=== PATIENT | male | born 1990 | race Caucasian/White ===

== ENCOUNTER 2017-05-13 19:53 | Inpatient (IN) | payer SELFPAY ==
[2017-05-13] MEDS ORDERED: PIPERACILLIN/TAZOBACTAM 4.5 GM VIAL IV ONE (20:59)
[2017-05-13] MEDS ORDERED: NORMAL SALINE 1000 ML 1,000 ML IV ONE (20:59)
--- NOTE | 2017-05-13 21:38 | ER Document Report ---
ED General - General Chief Complaint: Wound Infection Stated Complaint: FINGER INFECTION Time Seen by Provider: 05/13/17 20:59 Mode of Arrival: Ambulatory Information source: Patient TRAVEL OUTSIDE OF THE [place] IN LAST 30 DAYS: No - HPI Notes: 26-year-old gentleman who is right-handed presented today for evaluation of left hand infection. According to patient he initially had a small blister localized to the flexor surface of his left ring finger approximately 3 days ago. Patient attempted to squeeze the blister that progressed to worsening infection. Now patient has systemic signs of illness including tachycardia, fevers and chills, worsening hand pain and swelling. Patient denies any history of IV drug use. - Related Data Allergies/Adverse Reactions: No Known Allergies Allergy (Unverified 11/02/13 12:32) Past Medical History - Social History Smoking Status: Current Every Day Smoker Frequency of alcohol use: Occasional Family History: Reviewed & Not Pertinent Patient has suicidal ideation: No Patient has homicidal ideation: No Renal/ Medical History: Denies: Hx Peritoneal Dialysis - Immunizations Hx Diphtheria, Pertussis, Tetanus Vaccination: Yes Review of Systems - Review of Systems Notes: REVIEW OF SYSTEMS: CONSTITUTIONAL: +fevers, +chills EENT: -eye pain, -difficulty swallowing, -nasal congestion CARDIOVASCULAR: -chest pain, -syncope. RESPIRATORY: -cough, -SOB GASTROINTESTINAL: -abdominal pain, -nausea, -vomiting, -diarrhea GENITOURINARY: -dysuria, -hematuria MUSCULOSKELETAL: -back pain, -neck pain SKIN: + Worsening hand swelling, redness, pain HEMATOLOGIC: -easy bruising or bleeding. LYMPHATIC: -swollen, enlarged glands. NEUROLOGICAL: -altered mental status or loss of consciousness, -headache, - neurologic symptoms PSYCHIATRIC: -anxiety, -depression. ALL OTHER SYSTEMS REVIEWED AND NEGATIVE. Physical Exam - Vital signs Vitals: Temp Pulse Resp BP Pulse Ox 98.6 F 117 H 20 153/88 H 97 05/13/17 20:26 05/13/17 20:26 05/13/17 20:26 05/13/17 20:26 05/13/17 20:26 - Notes Notes: Reviewed vital signs and nursing note as charted by RN. CONSTITUTIONAL: Alert and oriented and responds appropriately to questions HEAD: Normocephalic; atraumatic EYES: PERRL ENT: normal nose NECK: Supple without meningismus CARD: Regular rate and rhythm; no murmurs, no clicks, no rubs, no gallops; symmetric distal pulses RESP: Normal chest excursion without splinting or tachypnea; breath sounds clear and equal bilaterally ABD/GI: Normal bowel sounds; non-distended; soft, BACK: The back appears normal and is non-tender to palpation EXT: Left hand examination with notable left ring finger swelling, finger appears to be sausagelike, patient has pain with passive extension of the left ring finger, patient has tenderness to palpation all throughout the flexor surface of the digit extending to the left palm, radial pulses are strong and palpable, sensation is present in all the dermatomes of the hand, patient has associated hand cellulitis with his flexor tenosynovitis as well SKIN: Normal color for age and race; warm; dry; good turgor; capillary refill < 2 seconds; no acute lesions noted NEURO: .Cranial nerves 3-12 intact. Motor strength 5/5 bilaterally. Sensation intact to touch bilaterally. No pronator drift. Finger to nose intact bilaterally PSYCH: The patient's mood and manner are appropriate Course - Re-evaluation Re-evalutation: 05/13/17 21:49 26-year-old with left hand infection consistent with flexor tenosynovitis as well as hand cellulitis Patient also has systemic signs of illness including tachycardia, fevers and chills Will obtain septic workup including CBC, BMP, blood cultures, lactic acid level We will obtain hand x-ray to rule out acute gas We will start patient on broad-spectrum antibiotics including IV vancomycin as well as Zosyn We will start patient IV fluids Patient will likely need orthopedics for evaluation and possible OR for washout 05/13/17 22:13 I have discussed the case with Dr. Melo, orthopedist environmental services associate He will be able to take patient for washout in am Recommended admission to Hospitalist for IV antibiotics and plan to wash out in the morning 05/13/17 23:24 Discussed his with hospitalist, recommended orthopedics admission I have paged Dr. Melo back, he agreed to take this patient on his service Admit to orthopedics - Vital Signs Vital signs: Temp Pulse Resp BP Pulse Ox 98.6 F 117 H 20 153/88 H 97 05/13/17 20:26 05/13/17 20:26 05/13/17 20:26 05/13/17 20:26 05/13/17 20:26 - Laboratory Result Diagrams: 05/13/17 21:40 05/13/17 21:40 Laboratory results interpreted by me: 05/13/17 05/13/17 21:40 21:40 WBC 16.7 H Seg Neutrophils % 79.5 H Lymphocytes % 11.8 L Absolute Neutrophils 13.3 H Calcium 10.7 H Total Protein 8.4 H Albumin 5.4 H - Diagnostic Test Radiology reviewed: Image reviewed - No gas in the hand Critical Care Note - Critical Care Note Comments: Critical Care Time: 35 minutes Critical care provider statement: Sepsis Critical care time was exclusive of: Separately billable procedures and treating other patients and teaching time Critical care was time spent personally by me on the following activities: Blood draw for specimens, development of treatment plan with patient or surrogate, evaluation of patient's response to treatment, examination of patient , obtaining history from patient or surrogate, ordering and performing treatments and interventions, ordering and review of laboratory studies, ordering and review of radiographic studies, pulse oximetry, re-evaluation of patient's condition and review of old charts I assumed direction of critical care for this patient from another provider in my specialty: no Discharge - Discharge Clinical Impression: Cellulitis of hand, right, Flexor tenosynovitis of finger Condition: Stable Disposition: ADMITTED INPATIENT Admitting Provider: Dr. Lorie Bond Unit Admitted: Surgical Floor
[2017-05-13] MEDS ORDERED: VANCOMYCIN HCL INJ 1000 MG VIAL IV ONE (21:46)
--- NOTE | 2017-05-13 21:51 | RADIOLOGY REPORT (SQ) ---
EXAM DESCRIPTION: HAND LEFT 3 VIEWS COMPLETED DATE/TIME: 05/13/2017 9:23 pm REASON FOR STUDY: pain/swelling COMPARISON: None. EXAM PARAMETERS: NUMBER OF VIEWS: Three views. TECHNIQUE: AP, lateral and oblique radiographic images acquired of the left hand. LIMITATIONS: None. FINDINGS: MINERALIZATION: Normal. BONES: No acute fracture or dislocation. No worrisome bone lesions. JOINTS: No effusions. SOFT TISSUES: 4th digit soft tissue swelling. No foreign body. OTHER: No other significant finding. IMPRESSION: 4th digit soft tissue swelling. No fracture. TECHNICAL DOCUMENTATION: JOB ID: [id number] [id number] [employer]- All Rights Reserved
[2017-05-13 22:24] LABS: ABSOLUTE BASOPHILS # (AUTO) 0.1 10^3/uL (0.0-0.2); ABSOLUTE EOSINOPHILS # (AUTO) 0.1 10^3/uL (0.0-0.6); ABSOLUTE MONOCYTES (AUTO) 1.3 10^3/uL (0.1-1.4); ABSOLUTE NEUT (AUTO) 13.3 10^3/uL (1.7-8.2); BASOPHILS % (AUTO) 0.3 % (0-2); EOSINOPHILS % (AUTO) 0.8 % (0-6); HEMATOCRIT 47.6 % (37.9-51.0); HEMOGLOBIN 16.2 g/dL (13.5-17.0); LYMPHOCYTES % (AUTO) 11.8 % (13-45); MEAN CORPUSCULAR HEMOGLOBIN 30.1 pg (27.0-33.4); MEAN CORPUSCULAR VOLUME 89 fl (80-97); MONOCYTES % (AUTO) 7.6 % (3-13); PLATELET COUNT 352 10^3/uL (150-450); RED BLOOD COUNT 5.38 10^6/uL (4.35-5.55); RED CELL DISTRIBUTION WIDTH 13.2 % (11.5-14.0); SEGMENTED NEUTROPHILS % (AUTO) 79.5 % (42-78); TOTAL CELLS COUNTED % (AUTO) 100 %; WHITE BLOOD COUNT 16.7 10^3/uL (4.0-10.5)
[2017-05-13 22:32] LABS: VENOUS BLOOD BASE EXCESS 0.6 mmol/L; VENOUS BLOOD PCO2 49.5 mmHg (35-63); VENOUS BLOOD PH 7.36 (7.30-7.42)
[2017-05-13 22:51] LABS: ALANINE AMINOTRANSFERASE 27 U/L (21-72); ALBUMIN 5.4 g/dL (3.5-5.0); ALKALINE PHOSPHATASE 90 U/L (38-126); ANION GAP 17 (5-19); ASPARTATE AMINO TRANSFERASE 18 U/L (17-59); BILIRUBIN,DIRECT 0.2 mg/dL (0.0-0.4); BILIRUBIN,TOTAL 0.6 mg/dL (0.2-1.3); BLOOD UREA NITROGEN 14 mg/dL (7-20); CALCIUM 10.7 mg/dL (8.4-10.2); CARBON DIOXIDE 22 mmol/L (22-30); CHLORIDE 101 mmol/L (98-107); GLUCOSE 85 mg/dL (75-110); POTASSIUM 3.9 mmol/L (3.6-5.0); SODIUM 139.8 mmol/L (137-145); TOTAL PROTEIN 8.4 g/dL (6.3-8.2)
--- NOTE | 2017-05-14 06:56 | PDOC H&P ---
History of Present Illness Admission Date/PCP: 05/14/17 00:17 History of Present Illness: JAKE DELEON is a 26 year old male Left ring finger pain, swelling Past Medical History Medical History: None Past Surgical History Past Surgical History: Reports: None Social History Information Source: Patient, [facility] Records Smoking Status: Current Every Day Smoker Family History Family History: Reviewed & Not Pertinent Parental Family History Reviewed: No Children Family History Reviewed: No Sibling(s) Family History Reviewed.: No Medication/Allergy Home Medications: Promethazine HCl [Phenergan 25 mg Tablet] 25 mg PO Q6H PRN #15 tablet 11/02/13 Sulfamethoxazole/Trimethoprim [Bactrim Ds Tablet] 2 each PO BID #40 tablet 11/02 Allergies/Adverse Reactions: No Known Allergies Allergy (Unverified 11/02/13 12:32) Review of Systems All systems: as per [facility] Physical Exam Vital Signs: Temp Pulse Resp BP Pulse Ox 37.0 C 84 14 123/56 L 97 05/14/17 04:57 05/14/17 04:57 05/14/17 04:57 05/14/17 04:57 05/14/17 04:57 Physical Exam: Middle-aged white male lying on ER rney accompanied by his significant other. Seems to be resting comfortably. General appearance: PRESENT: mild distress Head exam: PRESENT: normocephalic Respiratory exam: PRESENT: unlabored Cardiovascular exam: PRESENT: RRR Pulses: PRESENT: normal radial pulses Vascular exam: PRESENT: normal capillary refill GI/Abdominal exam: PRESENT: soft Rectal exam: PRESENT: deferred Musculoskeletal exam: PRESENT: other - Left hand demonstrates erythema over the ring finger and extending proximal lead to the MCP joint. There is tattoos over the dorsum. Volarly there is interruption in the skin. There is tenderness. Passive range of motion of the digit is not terribly painful. His capillary refill. Sensory examination is intact. Neurological exam: PRESENT: alert, awake, oriented to person, oriented to place , oriented to time, oriented to situation, CN II-XII grossly intact. ABSENT: motor sensory deficit Psychiatric exam: PRESENT: appropriate affect, normal mood. ABSENT: homicidal ideation, suicidal ideation Skin exam: PRESENT: dry, intact, warm. ABSENT: cyanosis, rash Results Impressions: Hand X-Ray 05/13/17 21:00 IMPRESSION: 4th digit soft tissue swelling. No fracture. Status: Imported from PACS Assessment & Plan - Diagnosis (1) Cellulitis of hand, right Is this a current diagnosis for this admission?: Yes Plan: 26-year-old white male with a left ring finger volar proximal phalanx inflammation that he attempted to drain with a "sterile" needle on his own. He now has a cellulitis. I do not believe he is a flexor Ashtyn synovitis on the basis of physical examination. Tentative plan will be to continue IV antibiotics and the patient will undergo a limited I&D today under local MAC anesthesia with Dr. bo. - Time Time Spent: 50 to 70 Minutes Anticipated discharge: Home with Homehealth Within: within 24 hours
--- NOTE | 2017-05-14 07:57 | PDOC PROGRESS REPORT ---
Subjective Progress Note for:: 05/14/17 Subjective:: 26-year-old male who developed redness and swelling in his left middle finger. Patient had notable pain and began having fever and chills. Subsequently presented to the emergency room and diagnosed with possible abscess. Patient was started on IV antibiotics he has noted improvement since the IV antibiotics but continues to have discomfort. Denies numbness or tingling. Pain 4/5. Reason For Visit: CELLULITIS OF RIGHT HAND FLEXOR TENOSYNOVITIS OF Physical Exam Vital Signs: Temp Pulse Resp BP Pulse Ox 98.6 F 84 14 123/56 L 97 05/14/17 04:57 05/14/17 04:57 05/14/17 04:57 05/14/17 04:57 05/14/17 04:57 General appearance: PRESENT: no acute distress, well-developed, well-nourished Head exam: PRESENT: atraumatic, normocephalic Eye exam: PRESENT: conjunctiva pink, EOMI, PERRLA. ABSENT: scleral icterus Ear exam: PRESENT: normal external ear exam Mouth exam: PRESENT: moist, tongue midline Neck exam: PRESENT: full ROM. ABSENT: carotid bruit, JVD, lymphadenopathy, thyromegaly Cardiovascular exam: PRESENT: RRR. ABSENT: diastolic murmur, rubs, systolic murmur Pulses: PRESENT: normal dorsalis pedis pul, +2 pedal pulses bilateral Vascular exam: PRESENT: normal capillary refill GI/Abdominal exam: PRESENT: normal bowel sounds, soft. ABSENT: distended, guarding, mass, organolmegaly, rebound, tenderness Rectal exam: PRESENT: deferred Musculoskeletal exam: PRESENT: other - Left middle finger: Erythema and swelling throughout the volar aspect of the digit which extends from the DIP joint flexion crease to the MP joint flexion crease mild swelling dorsally. Tenderness to palpation along the volar aspect of the digit along the middle phalanx and proximal phalanx no pain along the A1 christi. Palpable fluctuance. Cap refill less than 2 seconds. No sensory deficits. Neurological exam: PRESENT: alert, awake, oriented to person, oriented to place , oriented to time, oriented to situation, CN II-XII grossly intact. ABSENT: motor sensory deficit Psychiatric exam: PRESENT: appropriate affect, normal mood. ABSENT: homicidal ideation, suicidal ideation Skin exam: PRESENT: dry, intact, warm. ABSENT: cyanosis, rash Results Impressions: Hand X-Ray 05/13/17 21:00 IMPRESSION: 4th digit soft tissue swelling. No fracture. Assessment & Plan - Diagnosis (1) Flexor tenosynovitis of finger Is this a current diagnosis for this admission?: Yes Plan: On physical examination patient has findings of likely underlying abscess along the volar aspect of the digit with the possibility of early flexor tenosynovitis. Today we discussed treatment options I have recommended operative intervention which includes irrigation and debridement flexor sheath. Risks and benefits of the surgical procedure have been explained to the patient risks including neurovascular risk, postoperative pain, postoperative stiffness, recurrent infection patient has verbalized understanding consented for the procedure.
[2017-05-14] MEDS ORDERED: ACETAMINOPHEN 100 ML IV ONE (16:45)
--- NOTE | 2017-05-14 17:24 | Operative Report ---
Operative Report PREOPERATIVE DIAGNOSIS: Flexor tenosynovitis/abscess left ring finger POSTOPERATIVE DIAGNOSIS: Same OPERATION: Excisional irrigation and debridement tendon sheath with decompression abscess left ring finger SURGEON: MARY ALICE MILES ANESTHESIA: LMAC TISSUE REMOVED OR ALTERED: Aerobic/anaerobic/AFB/fungal cultures COMPLICATIONS: None ESTIMATED BLOOD LOSS: Minimal PROCEDURE: Indication for above procedure: 26-year-old male who developed redness and swelling of his left ring finger. He developed fever and chills subsequently presented to the emergency room. Upon examination determination was patient developed abscess and likely flexor tenosynovitis. I discussed treatment options with him including operative versus nonoperative intervention. Risks benefits were explained patient verbalized understanding consented for the procedure. Procedure In Detail: Patient was seen and evaluated in the preoperative holding area. The LEFT upper extremity was initialized and marked. Patient received 2g of Ancef IV for bacterial prophylaxis. Patient was taken back to the operative room where transferred to the operative table. Once they were adequately anesthetized a nonsterile tourniquet was placed on the upper extremity. A surgical team debriefing was performed ensuring all instrumentation was available, the surgical procedure was discussed with possible concerns reviewed. A digital block was performed utilizing 10 mL 50:50 mixture of 0.5% Marcaine and 1% lidocaine without epinephrine. The upper extremity was prepped with chlorhexidine and alcohol and draped in a sterile fashion. A timeout was done identifying correct patient, procedure and extremity everyone in attendance agree with this and verbalized no concerns. The extremity was elevated and the tourniquet was inflated to 250 mmHg. Skin incision was started along the A1 christi extending proximally in a Lit fashion across the proximal phalanx. Superficial purulence was encountered at the level of the proximal phalanx consistent with patient's clinical examination findings of abscess. The radial and ulnar neurovascular bundles were identified and I then released the A1 christi proximally there was small amount of cloudy appearing fluid within the tendon sheath. This area was copiously irrigated with normal saline. I then turned my attention to distally. At the level of the distal phalanx a small transverse skin incision was made and the A5 christi opened. A pediatric feeding tube was fed from the proximal incision to the distal incision aggressively irrigating the tendon sheath. Once completed the drain was left in place. Skin incisions were loosely closed with interrupted 4-0 nylon suture Sponge counts, instrument counts, needle counts counts were correct. Patient was then awoken from anesthesia. Transferred from the operating room table to the operating room stretcher. There was no intraoperative complications patient tolerated procedure well stable to PACU. Postoperative plan: Patient will continue on IV antibiotics until clinical improvement. Anticipate discharge in 48 hours. Will adjust antibiotics for p.o. antibiotics at home as per culture results.
[2017-05-14] MEDS ORDERED: BACITRACIN INJ 50,000 UNIT VIAL ONE (17:29)
[2017-05-14] MEDS ORDERED: FENTANYL CITRATE INJ/PF 100 MCG/2 ML AMPUL ONE (17:30)
[2017-05-14] MEDS ORDERED: PROPOFOL INJ 200 MG/20 ML VIAL IV ONE (17:31)
[2017-05-14] MEDS ORDERED: MIDAZOLAM 2 MG/2 ML INJ ONE (17:31)
[2017-05-14] MEDS ORDERED: BUPIVACAINE HCL 0.5 % INJ/PF 30 ML SDV ONE (17:40)
[2017-05-14] MEDS ORDERED: LIDOCAINE 1% INJ-PF (10 MG/ML) 30 ML SDV ONE (17:40)
[2017-05-14] MEDS ORDERED: MORPHINE SULFATE 10 MG/ML INJ IV PRN (17:52)
[2017-05-14] MEDS ORDERED: DIPHENHYDRAMINE HCL 50 MG/ML VIAL IV PRN (17:52)
[2017-05-14] MEDS ORDERED: MEPERIDINE HCL/PF INJ 25 MG/1 ML DISP.SYRIN IV PRN (17:52)
[2017-05-14] MEDS ORDERED: OXYCODONE-ACETAMINOPHEN 5-325 MG TABLET PO PRN ×2 (17:52)
[2017-05-14] MEDS ORDERED: FENTANYL CITRATE INJ/PF 100 MCG/2 ML AMPUL IV PRN ×3 (17:52)
[2017-05-14] MEDS ORDERED: PROMETHAZINE HCL INJ 25 MG/1 ML VIAL IV PRN ×2 (17:52)
[2017-05-14] MEDS ORDERED: ONDANSETRON HCL INJ/PF 4 MG/2 ML SDV IV PRN (18:29)
[2017-05-14] MEDS ORDERED: AMPICILLIN SOD/SULBACTAM 3 GM VIAL IV SCH (18:30)
[2017-05-14] MEDS ORDERED: VANCOMYCIN HCL INJ 1000 MG VIAL IV SCH (18:30)
[2017-05-14] MEDS ORDERED: NORMAL SALINE 250 ML IV ONE (20:45)
[2017-05-14] MEDS: HYDROMORPHONE HCL INJ/PF 2 MG/ML AMPULE IV PRN (21:17)
[2017-05-14] MEDS: AMPICILLIN SODIUM/SULBACTAM NA 3 GM in NORMAL SALINE 100 ML IV SCH (21:27)
[2017-05-14] MEDS: VANCOMYCIN HCL 1,500 MG in DEXTROSE 5%-WATER 250 ML IV SCH (23:12)
[2017-05-15] MEDS: HYDROMORPHONE HCL INJ/PF 2 MG/ML AMPULE IV PRN ×9 (00:54→22:38)
[2017-05-15] MEDS: OXYCODONE-ACETAMINOPHEN 5-325 MG TABLET PO PRN ×4 (02:10→23:46)
[2017-05-15] MEDS: AMPICILLIN SODIUM/SULBACTAM NA 3 GM in NORMAL SALINE 100 ML IV SCH ×4 (02:10→20:27)
[2017-05-15] MEDS: VANCOMYCIN HCL 1,500 MG in DEXTROSE 5%-WATER 250 ML IV SCH ×3 (05:41→22:38)
[2017-05-15 07:21] LABS: ABSOLUTE BASOPHILS # (AUTO) 0.1 10^3/uL (0.0-0.2); ABSOLUTE EOSINOPHILS # (AUTO) 0.3 10^3/uL (0.0-0.6); ABSOLUTE LYMPHOCYTES (AUTO) 2.9 10^3/uL (0.5-4.7); ABSOLUTE MONOCYTES (AUTO) 1.1 10^3/uL (0.1-1.4); ABSOLUTE NEUT (AUTO) 8.5 10^3/uL (1.7-8.2); BASOPHILS % (AUTO) 0.9 % (0-2); EOSINOPHILS % (AUTO) 2.2 % (0-6); HEMATOCRIT 42.9 % (37.9-51.0); HEMOGLOBIN 14.6 g/dL (13.5-17.0); LYMPHOCYTES % (AUTO) 22.8 % (13-45); MEAN CORPUSCULAR HEMOGLOBIN 30.2 pg (27.0-33.4); MEAN CORPUSCULAR HGB CONC 34.1 g/dL (32.0-36.0); MEAN CORPUSCULAR VOLUME 89 fl (80-97); MONOCYTES % (AUTO) 8.4 % (3-13); PLATELET COUNT 287 10^3/uL (150-450); RED BLOOD COUNT 4.85 10^6/uL (4.35-5.55); RED CELL DISTRIBUTION WIDTH 13.3 % (11.5-14.0); SEGMENTED NEUTROPHILS % (AUTO) 65.7 % (42-78); TOTAL CELLS COUNTED % (AUTO) 100 %; WHITE BLOOD COUNT 12.9 10^3/uL (4.0-10.5)
--- NOTE | 2017-05-15 07:21 | PDOC PROGRESS REPORT ---
Subjective Progress Note for:: 05/15/17 Reason For Visit: CELLULITIS OF RIGHT HAND FLEXOR TENOSYNOVITIS OF 26-year-old white male status post I&D of a left ring finger cellulitis yesterday. Patient complaining of pain this morning. Physical Exam Vital Signs: Temp Pulse Resp BP Pulse Ox 36.8 C 63 20 143/87 H 100 05/15/17 01:15 05/15/17 01:15 05/15/17 01:15 05/15/17 01:15 05/15/17 01:15 Intake & Output 05/14/17 05/15/17 05/16/17 06:59 06:59 06:59 Intake Total 1880 Output Total 5 Balance 1875 General appearance: PRESENT: no acute distress Head exam: PRESENT: normocephalic Respiratory exam: PRESENT: unlabored Cardiovascular exam: PRESENT: RRR Vascular exam: PRESENT: normal capillary refill GI/Abdominal exam: PRESENT: soft Rectal exam: PRESENT: deferred Extremities exam: PRESENT: other - Left hand dressing clean dry and intact. Distal neurovascular examination to the the ring finger is intact. Neurological exam: PRESENT: alert, awake, oriented to person, oriented to place , oriented to time, oriented to situation. ABSENT: motor sensory deficit Psychiatric exam: PRESENT: appropriate affect, normal mood. ABSENT: homicidal ideation, suicidal ideation Skin exam: PRESENT: dry, intact, warm. ABSENT: cyanosis, rash Results Impressions: Hand X-Ray 05/13/17 21:00 IMPRESSION: 4th digit soft tissue swelling. No fracture. Status: Imported from PACS Assessment & Plan - Diagnosis (1) Cellulitis of hand, right Is this a current diagnosis for this admission?: Yes Plan: Results of Gram stain and cultures are pending. Patient on empiric coverage currently. - Plan Summary Plan Summary: Modification of antibiotic regimen depending on Gram stain and culture and sensitivity
[2017-05-16] MEDS: HYDROMORPHONE HCL INJ/PF 2 MG/ML AMPULE IV PRN ×11 (00:55→23:17)
[2017-05-16] MEDS: AMPICILLIN SODIUM/SULBACTAM NA 3 GM in NORMAL SALINE 100 ML IV SCH ×4 (03:38→20:48)
[2017-05-16] MEDS: VANCOMYCIN HCL 1,500 MG in DEXTROSE 5%-WATER 250 ML IV SCH ×3 (06:02→22:04)
[2017-05-16 06:10] LABS: ABSOLUTE BASOPHILS # (AUTO) 0.1 10^3/uL (0.0-0.2); ABSOLUTE EOSINOPHILS # (AUTO) 0.3 10^3/uL (0.0-0.6); ABSOLUTE LYMPHOCYTES (AUTO) 2.3 10^3/uL (0.5-4.7); ABSOLUTE MONOCYTES (AUTO) 0.8 10^3/uL (0.1-1.4); ABSOLUTE NEUT (AUTO) 5.2 10^3/uL (1.7-8.2); BASOPHILS % (AUTO) 1.1 % (0-2); EOSINOPHILS % (AUTO) 3.5 % (0-6); HEMATOCRIT 42.7 % (37.9-51.0); HEMOGLOBIN 14.6 g/dL (13.5-17.0); LYMPHOCYTES % (AUTO) 26.6 % (13-45); MEAN CORPUSCULAR HEMOGLOBIN 30.5 pg (27.0-33.4); MEAN CORPUSCULAR HGB CONC 34.3 g/dL (32.0-36.0); MEAN CORPUSCULAR VOLUME 89 fl (80-97); MONOCYTES % (AUTO) 9.4 % (3-13); PLATELET COUNT 257 10^3/uL (150-450); RED CELL DISTRIBUTION WIDTH 13.1 % (11.5-14.0); SEGMENTED NEUTROPHILS % (AUTO) 59.4 % (42-78); TOTAL CELLS COUNTED % (AUTO) 100 %; WHITE BLOOD COUNT 8.7 10^3/uL (4.0-10.5)
[2017-05-16 06:31] LABS: VANCOMYCIN,TROUGH 14.4 ug/mL (5.0-20.0)
--- NOTE | 2017-05-16 07:14 | PDOC PROGRESS REPORT ---
Subjective Progress Note for:: 05/16/17 Subjective:: 18-year-old white male 2 days status post incision and drainage of a right upper extremity cellulitis. Patient lying in hospital bed this morning with upper extremity splint in place. Patient reports he has decreased tenderness and increase range of motion however still expresses some pain. Reason For Visit: CELLULITIS OF RIGHT HAND FLEXOR TENOSYNOVITIS OF Physical Exam Vital Signs: Temp Pulse Resp BP Pulse Ox 36.4 C 71 20 136/92 H 100 05/16/17 03:15 05/16/17 03:15 05/16/17 03:15 05/16/17 03:15 05/16/17 03:15 Intake & Output 05/15/17 05/16/17 05/17/17 06:59 06:59 06:59 Intake Total 1880 2760 Output Total 5 5 Balance 1875 2755 General appearance: PRESENT: no acute distress, well-developed, well-nourished Head exam: PRESENT: atraumatic, normocephalic Respiratory exam: PRESENT: unlabored Pulses: PRESENT: normal dorsalis pedis pul, +2 pedal pulses bilateral Vascular exam: PRESENT: normal capillary refill Additional comments: Patient's right upper extremity placed in postoperative hand and wrist splint. Patient's compression dressing is in place and this is clean dry and intact. He has decreased swelling and increased range of motion of his wrist. Patient still reports that he is tender to palpation over the incision however area of tenderness has decreased since operation. He has +2 radial pulses brisk capillary refill to fingers and distal neurovascular exam is intact. Musculoskeletal exam: PRESENT: ambulatory Additional comments: Again patient's right upper extremity is in postoperative splint. Patient would likely benefit from occupational therapy to maintain strength range of motion of right upper extremity as well as assist in maintaining control of activities of daily living. And this will likely be established for the patient on an outpatient basis upon discharge. Neurological exam: PRESENT: alert, awake, oriented to person, oriented to place , oriented to time, oriented to situation, CN II-XII grossly intact. ABSENT: motor sensory deficit Psychiatric exam: PRESENT: appropriate affect, normal mood. ABSENT: homicidal ideation, suicidal ideation Skin exam: PRESENT: dry, intact, warm. ABSENT: cyanosis, rash Results Laboratory Results: 05/16/17 05:43 05/16/17 05:43 05/15/17 05/16/17 05/16/17 06:21 05:43 05:43 WBC 12.9 H 8.7 RBC 4.85 4.80 Hgb 14.6 14.6 Hct 42.9 42.7 MCV 89 89 MCH 30.2 30.5 MCHC 34.1 34.3 RDW 13.3 13.1 Plt Count 287 257 Seg Neutrophils % 65.7 59.4 Lymphocytes % 22.8 26.6 Monocytes % 8.4 9.4 Eosinophils % 2.2 3.5 Basophils % 0.9 1.1 Absolute Neutrophils 8.5 H 5.2 Absolute Lymphocytes 2.9 2.3 Absolute Monocytes 1.1 0.8 Absolute Eosinophils 0.3 0.3 Absolute Basophils 0.1 0.1 Creatinine 0.77 Est GFR ( Amer) > 60 Est GFR (Non-Af Amer) > 60 Impressions: Hand X-Ray 05/13/17 21:00 IMPRESSION: 4th digit soft tissue swelling. No fracture. Assessment & Plan - Diagnosis (1) Cellulitis of hand, right Is this a current diagnosis for this admission?: Yes - Plan Summary Plan Summary: 26-year-old white male 2 days status post incision and drainage of right index finger possible flexor tendon synovitis and cellulitis of the right hand. Patient notes that his edema is decreasing postoperatively and that he is regaining strength range of motion of right wrist as well as fingers. He notes that his pain is also decreasing however persists over incision site. He remains in his postoperative splint and compression dressing is clean dry and intact. This is left in place. Patient would likely benefit from occupational therapy to improve strength range of motion of right upper extremity as well as maintain activities of daily living. This will likely be established on discharge for the patient. He will likely be discharged later this week. Intraoperative cultures still have no growth of any bacteria.
[2017-05-16] MEDS: OXYCODONE-ACETAMINOPHEN 5-325 MG TABLET PO PRN ×2 (13:20→22:26)
[2017-05-17] MEDS: AMPICILLIN SODIUM/SULBACTAM NA 3 GM in NORMAL SALINE 100 ML IV SCH ×2 (03:03→10:11)
[2017-05-17] MEDS: HYDROMORPHONE HCL INJ/PF 2 MG/ML AMPULE IV PRN ×6 (03:03→15:06)
[2017-05-17 05:06] LABS: ABSOLUTE BASOPHILS # (AUTO) 0.1 10^3/uL (0.0-0.2); ABSOLUTE EOSINOPHILS # (AUTO) 0.4 10^3/uL (0.0-0.6); ABSOLUTE LYMPHOCYTES (AUTO) 2.5 10^3/uL (0.5-4.7); ABSOLUTE MONOCYTES (AUTO) 0.9 10^3/uL (0.1-1.4); ABSOLUTE NEUT (AUTO) 4.8 10^3/uL (1.7-8.2); BASOPHILS % (AUTO) 0.7 % (0-2); EOSINOPHILS % (AUTO) 4.7 % (0-6); HEMATOCRIT 44.8 % (37.9-51.0); HEMOGLOBIN 15.4 g/dL (13.5-17.0); LYMPHOCYTES % (AUTO) 28.6 % (13-45); MEAN CORPUSCULAR HEMOGLOBIN 30.5 pg (27.0-33.4); MEAN CORPUSCULAR HGB CONC 34.4 g/dL (32.0-36.0); MEAN CORPUSCULAR VOLUME 89 fl (80-97); MONOCYTES % (AUTO) 10.6 % (3-13); PLATELET COUNT 304 10^3/uL (150-450); RED BLOOD COUNT 5.06 10^6/uL (4.35-5.55); RED CELL DISTRIBUTION WIDTH 13.4 % (11.5-14.0); SEGMENTED NEUTROPHILS % (AUTO) 55.4 % (42-78); TOTAL CELLS COUNTED % (AUTO) 100 %; WHITE BLOOD COUNT 8.6 10^3/uL (4.0-10.5)
[2017-05-17] MEDS: VANCOMYCIN HCL 1,500 MG in DEXTROSE 5%-WATER 250 ML IV SCH ×2 (05:10→13:36)
--- NOTE | 2017-05-17 06:40 | PDOC PROGRESS REPORT ---
Subjective Progress Note for:: 05/17/17 Subjective:: 26-year-old white male 3 days status post incision and drainage of the left hand cellulitis and possible flexor tendon synovitis. Patient laying in hospital bed comfortably this morning asking questions related to his dressing incision site and when he will be discharged. Patient was assured that Dr. Barrera would be making rounds later today and could answer his questions. Reason For Visit: CELLULITIS OF HAND, FLEXOR TENOSYNOVITIS Physical Exam Vital Signs: Temp Pulse Resp BP Pulse Ox 36.3 C 77 16 151/84 H 99 05/16/17 23:01 05/16/17 23:01 05/16/17 23:01 05/16/17 23:01 05/16/17 23:01 Intake & Output 05/15/17 05/16/17 05/17/17 06:59 06:59 06:59 Intake Total 1140 Balance 1140 General appearance: PRESENT: no acute distress, well-developed, well-nourished Head exam: PRESENT: atraumatic, normocephalic Respiratory exam: PRESENT: unlabored Pulses: PRESENT: normal dorsalis pedis pul, +2 pedal pulses bilateral Vascular exam: PRESENT: normal capillary refill Additional comments: Left upper extremity is in postoperative compression dressing this is clean dry and intact. Patient has appropriate capillary refill to fingers on bilateral upper extremities. His sensorimotor functions are intact and his distal neurovascular exam is intact. Patient reports he has noticed swelling has decreased as well as his pain. He however still has incisional pain. Musculoskeletal exam: PRESENT: ambulatory Additional comments: As noted on previous note I believe patient would benefit from occupational therapy once discharged from hospital. This will assist in maintaining strength range of motion of left upper extremity and assist with activities of daily living. Neurological exam: PRESENT: alert, awake, oriented to person, oriented to place , oriented to time, oriented to situation, CN II-XII grossly intact. ABSENT: motor sensory deficit Psychiatric exam: PRESENT: appropriate affect, normal mood. ABSENT: homicidal ideation, suicidal ideation Skin exam: PRESENT: dry, intact, warm. ABSENT: cyanosis, rash Results Laboratory Results: 05/17/17 04:26 05/17/17 04:26 WBC 8.6 RBC 5.06 Hgb 15.4 Hct 44.8 MCV 89 MCH 30.5 MCHC 34.4 RDW 13.4 Plt Count 304 Seg Neutrophils % 55.4 Lymphocytes % 28.6 Monocytes % 10.6 Eosinophils % 4.7 Basophils % 0.7 Absolute Neutrophils 4.8 Absolute Lymphocytes 2.5 Absolute Monocytes 0.9 Absolute Eosinophils 0.4 Absolute Basophils 0.1 Impressions: Hand X-Ray 05/13/17 21:00 IMPRESSION: 4th digit soft tissue swelling. No fracture. Assessment & Plan - Diagnosis (1) Cellulitis of hand, right Is this a current diagnosis for this admission?: Yes - Plan Summary Plan Summary: 26-year-old white male 3 days status post incision and drainage from cellulitis of the left hand as well as possible flexor tendon synovitis. Patient swelling continues to decrease as does his postoperative pain. However he notes there is still incisional pain. His dressing is clean dry and intact. He would likely benefit from occupational therapy services postoperatively and once he is discharged from the hospital. In regards to his intraoperative cultures a preliminary report indicates there is growth of gram negative rods and gram- positive cocci. Once culture and sensitivity reports are complete IV antibiotic therapies will be tailored to bacteria grown. He will likely remain on these antibiotics for 6 weeks of parenteral therapy. Patient was informed that Dr. Barrera will be making rounds later today and will discuss plans for discharge and outpatient occupational therapy as well as parenteral antibiotic prophylactic therapy.
[2017-05-17] MEDS: OXYCODONE-ACETAMINOPHEN 5-325 MG TABLET PO PRN ×2 (07:15→13:40)
[2017-05-17] MEDS ORDERED: LANSOPRAZOLE 30 MG TAB.RAP.DR PO ONE (13:45)
--- NOTE | 2017-05-17 15:26 | PDOC DISCHARGE SUMMARY ---
General - Admit/Disc Date/PCP Admission Date/Primary Care Provider: 05/16/17 09:48 Discharge Date: 05/17/17 - Discharge Diagnosis (1) Flexor tenosynovitis of finger Is this a current diagnosis for this admission?: Yes - Additional Information Resuscitation Status: Full Code Discharge Diet: As Tolerated Discharge Activity: Activity As Tolerated Prescriptions: Amox Tr/Potassium Clavulanate [Augmentin 875-125 mg Tablet] 1 tab PO BID #20 tablet Oxycodone HCl/Acetaminophen [Percocet 5-325 mg Tablet] 1 - 2 tab PO ASDIR PRN # 25 tablet PRN Reason: Home Medications: Amox Tr/Potassium Clavulanate [Augmentin 875-125 mg Tablet] 1 tab PO BID #20 tablet 05/17/17 Oxycodone HCl/Acetaminophen [Percocet 5-325 mg Tablet] 1 - 2 tab PO ASDIR PRN # 25 tablet 05/17/17 History of Present Illness Patient complains of: Right ring finger pain and swelling. History of Present Illness: JAKE DELEON is a 26 year old male who developed redness swelling of his right ring finger he attempted decompression on his own and got notable purulence. The redness and swelling then worsened thus presented to the emergency room where he was diagnosed with possible flexor tenosynovitis. Patient was started on Unasyn and vancomycin while in the emergency room. Hospital Course Hospital Course: Patient was admitted to the orthopedic service on 05/13/17. Given the severity of patient's swelling decision was made to proceed with operative intervention. On 05/14/17 patient underwent irrigation and debridement of his right ring finger. Throughout the patient's hospital course his white count normalized and the swelling also improved. He was started on chlorhexidine soaks 05/16/17. Currently taking Dilaudid with some relief. Denies fever chills or sweats. Current antibiotics include Unasyn and vancomycin. Cultures demonstrate staph aureus methicillin sensitive and Klebsiella oxytoca which were adequately treated. Physical Exam Vital Signs: Temp Pulse Resp BP Pulse Ox 97.9 F 70 18 150/76 H 97 05/17/17 12:04 05/17/17 12:04 05/17/17 12:04 05/17/17 12:04 05/17/17 12:04 Intake & Output 05/16/17 05/17/17 05/18/17 06:59 06:59 06:59 Intake Total 1880 Balance 1880 General appearance: PRESENT: no acute distress, well-developed, well-nourished Head exam: PRESENT: atraumatic, normocephalic Eye exam: PRESENT: conjunctiva pink, EOMI, PERRLA. ABSENT: scleral icterus Ear exam: PRESENT: normal external ear exam Mouth exam: PRESENT: moist, tongue midline Neck exam: PRESENT: full ROM. ABSENT: carotid bruit, JVD, lymphadenopathy, thyromegaly Cardiovascular exam: PRESENT: RRR. ABSENT: diastolic murmur, rubs, systolic murmur Pulses: PRESENT: normal dorsalis pedis pul, +2 pedal pulses bilateral Vascular exam: PRESENT: normal capillary refill GI/Abdominal exam: PRESENT: normal bowel sounds, soft. ABSENT: distended, guarding, mass, organolmegaly, rebound, tenderness Rectal exam: PRESENT: deferred Musculoskeletal exam: PRESENT: other - Right ring finger: Dressing removed today. Surgical incisions well approximated mild bloody drainage no expressive purulence. Significant improved swelling. Intact sensation to light touch. Cap refill less than 2 seconds. No pain with passive stretch. DIP joint range of motion 20-40 PIP joint range of motion 20-45 Neurological exam: PRESENT: alert, awake, oriented to person, oriented to place , oriented to time, oriented to situation, CN II-XII grossly intact. ABSENT: motor sensory deficit Psychiatric exam: PRESENT: appropriate affect, normal mood. ABSENT: homicidal ideation, suicidal ideation Skin exam: PRESENT: dry, intact, warm. ABSENT: cyanosis, rash Results Laboratory Results: 05/17/17 04:26 05/17/17 04:26 WBC 8.6 RBC 5.06 Hgb 15.4 Hct 44.8 MCV 89 MCH 30.5 MCHC 34.4 RDW 13.4 Plt Count 304 Seg Neutrophils % 55.4 Lymphocytes % 28.6 Monocytes % 10.6 Eosinophils % 4.7 Basophils % 0.7 Absolute Neutrophils 4.8 Absolute Lymphocytes 2.5 Absolute Monocytes 0.9 Absolute Eosinophils 0.4 Absolute Basophils 0.1 Impressions: Hand X-Ray 05/13/17 21:00 IMPRESSION: 4th digit soft tissue swelling. No fracture. Qualifiers - * PATEINT BEING DISCHARGED WITH ANY OF THE FOLLOWING DIAGNOSIS?: No VTE patient discharged on overlapping Therapy?: No Plan Discharge Plan: Patient has progressed appropriate throughout hospital course given the fact that his clinical and examination findings have shown improvement I feel he is orthopedically stable for discharge to home. Will continue twice daily soaks. Has been given prescriptions for Percocet and Augmentin. Will follow up with me in 10 days for recheck. Patient was read the discharge instructions, understood the instructions and is orthopedically stable for discharge on .
[2017-05-17 15:36] VITALS: BP 126/78
[2017-05-18] MEDS ORDERED: LANSOPRAZOLE 30 MG TAB.RAP.DR PO SCH (06:00)
== END 2017-05-17 15:48 | disposition home or self-care (01) | DRG 513 ==
LOC: ER 19:53 → INTOOBSV 05-14 00:17 → EH 05-14 00:17 → 4S 05-14 18:45 → OBSVTOIN 05-16 09:48
PROVIDERS: ADMIT Orthopaedic Surgery; ATTEND Orthopaedic Surgery
PROC: 0L980ZZ Drainage of Left Hand Tendon, Open Approach (ICD-10-PCS; principal; 2017-05-14 16:15)
DX: M65.842 Other synovitis and tenosynovitis, left hand (principal); L03.114 Cellulitis of left upper limb; L08.9 Local infection of the skin and subcutaneous tissue, unspecified; B95.61 Methicillin susceptible Staphylococcus aureus infection as the cause of diseases classified elsewhere; F17.210 Nicotine dependence, cigarettes, uncomplicated
CPT/HCPCS: 00400; 36415; 80053; 80202; 82565; 82803; 83605; 85025; 87015; 87040; 87070; 87075; 87077; 87101; 87116; 87186; 87205; 87206; 87493; 96361; 96365; 96375; 99291; B4082; G0378; J0131; J0295; J1170; J2250; J2543; J2704; J3010; J3370; J3490; J7030; J7060

== ENCOUNTER 2018-09-25 21:54 | Emergency (ER) | payer SELFPAY ==
[~2018-09-25 21:54] MED LIST: ETOMIDATE INJ/PF 20 MG/10 ML SDV IV ONE; ROCURONIUM BROMIDE INJ 50 MG/5 ML VIAL IV ONE
[2018-09-25] MEDS ORDERED: MIDAZOLAM HCL 50 MG/100 ML RTUINJ ONE (22:06)
[2018-09-25] MEDS ORDERED: ETOMIDATE INJ/PF 20 MG/10 ML SDV IV ONE (22:10)
[2018-09-25] MEDS: MIDAZOLAM HCL 50 MG/100 ML RTUINJ IV PRN (22:16)
[2018-09-25] MEDS ORDERED: ROCURONIUM BROMIDE INJ 50 MG/5 ML VIAL IV ONE (22:19)
[2018-09-25] MEDS ORDERED: MIDAZOLAM 2 MG/2 ML INJ IV ONE (22:19)
--- NOTE | 2018-09-25 22:24 | ER Document Report ---
ED General - General Chief Complaint: Overdose Stated Complaint: POSSIBLE OVERDOSE Notes: Patient is a 28-year-old male who is brought in by paramedics after they receiv ed a call for help because patient had ingested a bag of meth. Please said that the got the story from the girlfriend. I have now spoken to girlfriend. The girlfriend says that he was acting paranoid and said that he did not trust the people that they are around and therefore he he told her that he swallowed a bag of meth that he had. She says she is unsure exactly how much meth was in the back. She said this occurred somewhere around 530 or 6. He said he was hungry and therefore she took him some food. Shortly after that he started to sweat and felt very hot and then went into the shower. He then started having a seizure in the shower. She then called for help. She does not think he took any other drugs. She says she is sure that it was meth that he said that he took. No further history available at this time. Paramedics did give him 5 mg of Versed in route due to severe tremors. TRAVEL OUTSIDE OF THE [place] IN LAST 30 DAYS: No - Related Data Allergies/Adverse Reactions: poison maria l Allergy (Severe, Uncoded 05/15/17 11:03) Past Medical History - Social History Smoking Status: Unknown if Ever Smoked Frequency of alcohol use: Occasional Drug Abuse: Methamphetamine Family History: Reviewed & Not Pertinent Renal/ Medical History: Denies: Hx Peritoneal Dialysis - Immunizations Hx Diphtheria, Pertussis, Tetanus Vaccination: Yes Review of Systems - Review of Systems -: Yes ROS unobtainable due to patient's medical condition - Patient is poorly responsive and unable to contribute to history. Physical Exam - Vital signs Vitals: Pulse Ox 100 09/25/18 22:12 - Notes Notes: General Appearance: Patient is sweating and tremulous of. Heart rate is very high. Jaw is intermittently clenched tightly. Vitals: reviewed, See vital signs table. Head: no swelling or tenderness to the head Eyes: PERRL, EOMI, Conjuctiva clear Mouth: No decreasd moisture Throat: Some black type material in posterior pharynx. Neck: Supple, no neck tenderness, No thyromegaly Lungs: No wheezing, No rales, No rhonci, No accessory muscle use, good air exchange bilaterally. Heart: tacycardic rate, Regular rythm, No murmur, no rub Abdomen: Normal BS, soft, No rigidity, No abdominal tenderness, No guarding, no rebound, no abdominal masses, no organomegaly Extremities: strength 5/5 in all extremities, good pulses in all extremities, no swelling or tenderness in the extremities, no edema. Skin: warm, dry, appropriate color, no rash Neuro: Patient is for the most part unresponsive. He will occasionally have a slight purposeful movement with his arms. He has a continuous tremor throughout his extremities that appears to be more nonepileptic due to the intermittent purposeful movement with his arms. He may have some intermittent seizure activity being that intermittently he will have some clenching of the jaw. Eyes did not have any nystagmus. There is no abnormal movement of the eyes. Pupils are equal and reactive and approximately 4 mm. Course - Re-evaluation Re-evalutation: 09/25/18 22:21 Due to concern that the patient may have a severe large meth overdose in conjunction with him already being hypothermic and poorly responsive and tremulous with possible seizure activity I decided to go forward with intubation so that I can make sure that the patient is highly sedated. I did use rocuronium as patients on his condition can quickly go into acute renal failure and have hyperkalemia. I sedated him with etomidate. I then give the patient 5 mill grams of Versed really after tube was placed in requested to be placed in the high-dose Versed drip. We we will then place a core temp Blank catheter so I can closely monitor his core temp. I have placed ice packs in his axilla and groin. Will place a cooling blanket on him to keep his temp from getting any higher. I have ordered IV fluids. 09/25/18 22:48 Since patient has received high-dose sedation his heart rate is gone from the 130s and 140s down to 108. Blood pressure is 120/84. We will continue to closely monitor the patient. IV fluids are being infused. Temp is now down to 100.8. 09/25/18 23:20 Patient is improving. His heart rate is now in the 90s. His Versed is at 10 mg an hour. He will occasionally have some purposeful movement and attempt to lift or grab at the tube. I therefore increased his Versed drip to 14 mg an hour. 09/25/18 23:44 Patient is occasionally having some purposeful movement but he is also having some posturing intermittently and some intermittent tremors. He is not having jaw clenching at this time however with the amount of meth that he ingested in his initial presentation concerning for seizures I cannot rule out possible sub clinical status and therefore feel the need to transfer the patient to a facility that has ability to do continuous EEG monitoring. I have called [facility] and they will get me in touch with the can filling machine operator. 09/26/18 00:[address] Perez, Activities Volunteer at [facility]. He agrees to accept the patient as long as patient does not have any evidence of brain bleeding on CT scan. I did order CT scan which is just been obtained. I reviewed the images myself and has any evidence of intracerebral hemorrhage. I will wait for the official read from the radiologist and then call back [facility] to let them know that the CT scan is negative. Patient will then be transferred for continued monitoring and treatment and for potential EEG mo nitoring. 09/26/18 01:16 CT scan of brain is negative per radiologist report. I did contact [facility] to make them aware. They said they will work on obtaining a bed for transfer. 09/26/18 01:26 Patient's OG tube is starting to put out a small amount of dark red material consistent with probably some old blood in the stomach. Was a chance that he could be having some gastritis or gastric ulcerations related to his ingestion. I have given a dose of IV Protonix. 09/26/18 05:23 Patient has not had any more drainage from the OG tube. This appears to have stopped. Patient remains well sedated. No obvious seizure activity right now at this time. The intermittent posturing and tremors appear to be happening less frequently. Vital signs are stable. 09/26/18 05:24 - Vital Signs Vital signs: Temp Pulse Resp BP Pulse Ox 16 141/102 H 97 09/26/18 07:26 09/26/18 07:26 09/26/18 07:26 - Laboratory Result Diagrams: 09/25/18 22:05 09/25/18 22:05 Laboratory results interpreted by me: 09/25/18 09/25/18 09/25/18 22:05 22:05 22:23 WBC 16.4 H RBC 5.57 H Seg Neuts % (Manual) 96 H Lymphocytes % (Manual) 3 L Monocytes % (Manual) 1 L Abs Neuts (Manual) 15.7 H Sodium 147.5 H Chloride 111 H Creatinine 1.54 H Est GFR (Non-Af Amer) 53 L Creatine Kinase 379 H Urine Protein Urine Glucose (UA) Urine Ketones Urine Nitrite Salicylates < 1.0 L Acetaminophen < 10 L 09/26/18 00:30 WBC RBC Seg Neuts % (Manual) Lymphocytes % (Manual) Monocytes % (Manual) Abs Neuts (Manual) Sodium Chloride Creatinine Est GFR (Non-Af Amer) Creatine Kinase Urine Protein 30 H Urine Glucose (UA) 50 H Urine Ketones 20 H Urine Nitrite POSITIVE H Salicylates Acetaminophen - EKG Interpretation by Me Additional EKG results interpreted by me: 09/25/18 22:53 EKG reviewed and interpreted by me. EKG shows sinus tachycardia with a rate of [address] segment elevation or depression. No ischemic T wave inversions. OK interval, QRS duration, QT intervals are within normal range. No old EKG available for comparison. Procedures - Intubation Orotracheal Airway evaluation: Normal anatomy Mallampati Classification: Class 1 Intubation method: Orotracheal Blade size: 4 Equipment used: Glidescope ETT size: 7.5 ETT secured at: Lips ETT secured at (cm): 23 Breath Sounds after Intubation: Equal End tidal CO2 confirmed: Yes Post Intubation Xray: Yes - appropriate positioning Intubation Complications: No complications Critical Care Note - Critical Care Note Total time excluding time spent on procedures (mins): 45 Comments: Critical care time for the patient including time spent in procedures approxim ately 45 minutes due to frequent re-evaluations, management of hypothermia from drug use, management of tremors possible seizure, management of ventilator, management of sedation. Discharge - Discharge Clinical Impression: Drug overdose Qualifiers: Encounter type: initial encounter Injury intent: undetermined intent Qualified Code(s): T50.904A - Poisoning by unspecified drugs, medicaments and biological substances, undetermined, initial encounter Condition: Serious Disposition: [facility]
[2018-09-25 22:34] LABS: HEMATOCRIT 47.5 % (37.9-51.0); HEMOGLOBIN 16.7 g/dL (13.5-17.0); MEAN CORPUSCULAR HEMOGLOBIN 29.9 pg (27.0-33.4); MEAN CORPUSCULAR HGB CONC 35.1 g/dL (32.0-36.0); MEAN CORPUSCULAR VOLUME 85 fl (80-97); PLATELET COUNT 448 10^3/uL (150-450); RED BLOOD COUNT 5.57 10^6/uL (4.35-5.55); RED CELL DISTRIBUTION WIDTH 12.8 % (11.5-14.0); WHITE BLOOD COUNT 16.4 10^3/uL (4.0-10.5)
[2018-09-25 22:40] LABS: ACETAMINOPHEN < 10 ug/mL (10-30); ALANINE AMINOTRANSFERASE 27 U/L (21-72); ALCOHOL < 10 mg/dL (NONE DETECTED); ALKALINE PHOSPHATASE 85 U/L (38-126); ANION GAP 15 (5-19); ASPARTATE AMINO TRANSFERASE 27 U/L (17-59); BILIRUBIN,DIRECT 0.3 mg/dL (0.0-0.4); BLOOD UREA NITROGEN 13 mg/dL (7-20); CALCIUM 10.1 mg/dL (8.4-10.2); CARBON DIOXIDE 22 mmol/L (22-30); CHLORIDE 111 mmol/L (98-107); GLUCOSE 99 mg/dL (75-110); POTASSIUM 4.6 mmol/L (3.6-5.0); SALICYLATE < 1.0 mg/dL (2.0-20.0); SODIUM 147.5 mmol/L (137-145); TOTAL PROTEIN 8.2 g/dL (6.3-8.2)
[2018-09-25 22:57] LABS: ABSOLUTE LYMPHOCYTES# (MANUAL) 0.5 10^3/uL (0.5-4.7); ABSOLUTE MONOCYTES # (MANUAL) 0.2 10^3/uL (0.1-1.4); BASOPHILS % (MANUAL) 0 % (0-2); EOSINOPHILS % (MANUAL) 0 % (0-6); LYMPHOCYTES % (MANUAL) 3 % (13-45); MONOCYTES % (MANUAL) 1 % (3-13); SEGMENTED NEUTROPHILS % (MAN) 96 % (42-78); TOTAL CELLS COUNTED 100
[2018-09-25 22:58] LABS: PLATELET COMMENT INCREASED
[2018-09-25 22:59] LABS: RBC MORPHOLOGY COMMENT NORMO-CYTIC/CHROMIC
[2018-09-25] MEDS ORDERED: PROPOFOL 1,000 MG/100 ML INFUS..BTL IV ONE (23:21)
--- NOTE | 2018-09-25 23:24 | RADIOLOGY REPORT (SQ) ---
EXAM DESCRIPTION: XR CHEST 1 VIEW COMPLETED DATE/TME: 09/25/2018 22:35 CLINICAL HISTORY: 28 years Male, post intubation COMPARISON: None. NUMBER OF VIEWS/TECHNIQUE: 1/AP FINDINGS: Small metallic shrapnel at the level of the right hemidiaphragm. Adequate lung volume, clear parenchyma, normal cardiac silhouette, and intact bony thorax. Adequate appearing endotracheal tube. Adequate appearing enteric tube partially obscured. IMPRESSION: 1. Small metallic shrapnel at the level of the right hemidiaphragm. 2. Intubated. Else, no acute cardiopulmonary findings.
[2018-09-25] MEDS: RINGERS SOLUTION,LACTATED 1,000 ML IV PRN (23:40)
[2018-09-26] MEDS: RINGERS SOLUTION,LACTATED 1,000 ML IV PRN
[2018-09-26] MEDS: PROPOFOL 1,000 MG/100 ML INFUS..BTL IV PRN ×3 (00:15→06:50)
[2018-09-26] MEDS ORDERED: MIDAZOLAM HCL 50 MG/100 ML RTUINJ ONE (00:29)
--- NOTE | 2018-09-26 00:43 | RADIOLOGY REPORT (SQ) ---
EXAM DESCRIPTION: CT HEAD WITHOUT IV CONTRAST COMPLETED DATE/TME: 09/25/2018 23:55 CLINICAL HISTORY: 28 years Male, altered mental status COMPARISON: None. TECHNIQUE: No contrast. Coronal and sagittal reformat. This exam was performed according to our departmental dose-optimization program, which includes automated exposure control, adjustment of the mA and/or kV according to patient size and/or use of iterative reconstruction technique. FINDINGS: No hemorrhage or infarct. No mass, mass effect, or midline shift. Atherosclerosis. Brain and extra-axial structures appear otherwise intact. Endotracheal and enteric tubes partially imaged. IMPRESSION: No acute findings. Intubated.
[2018-09-26] MEDS ORDERED: RINGERS SOLUTION,LACTATED 1,000 ML IV PRN (01:00)
[2018-09-26 01:10] LABS: APPEARANCE,URINE SLIGHTLY-CLOUDY; BILIRUBIN,URINE NEGATIVE (NEGATIVE); COLOR,URINE YELLOW; GLUCOSE, URINE 50 mg/dL (NEGATIVE); KETONES,URINE 20 mg/dL (NEGATIVE); LEUKOCYTE ESTERASE,URINE NEGATIVE (NEGATIVE); NITRITE,URINE POSITIVE (NEGATIVE); PROTEIN,URINE 30 mg/dL (NEGATIVE); URINE SPECIFIC GRAVITY 1.021; UROBILINOGEN,URINE NEGATIVE mg/dL (<2.0)
[2018-09-26 01:13] LABS: URINE BARBITURATES SCREEN NEGATIVE; URINE BENZODIAZEPINES SCREEN UNCONFIRMED POSITIVE; URINE COCAINE SCREEN NEGATIVE; URINE MARIJUANA (THC) SCREEN UNCONFIRMED POSITIVE; URINE METHADONE SCREEN NEGATIVE; URINE PHENCYCLIDINE SCREEN NEGATIVE
[2018-09-26] MEDS ORDERED: PANTOPRAZOLE SODIUM 40 MG VIAL IV ONE (01:25)
[2018-09-26] MEDS: MIDAZOLAM HCL 50 MG/100 ML RTUINJ IV PRN (06:07)
[2018-09-26 07:31] VITALS: BP 141/102
--- NOTE | 2018-09-26 14:02 | EKG REPORT ---
SEVERITY:- ABNORMAL ECG - SINUS TACHYCARDIA LEFT POSTERIOR FASCICULAR BLOCK VS L ARM R ARM LEAD REVERSAL : Confirmed by: Miki An 26-Sep-2018 14:02:02
== END 2018-09-26 08:39 | disposition short-term general hospital (02) ==
LOC: ER 21:54
DX: T50.904A Poisoning by unspecified drugs, medicaments and biological substances, undetermined, initial encounter (principal); X58.XXXA Exposure to other specified factors, initial encounter
CPT/HCPCS: 93005; 99291; 96361; 51702; 96374; 36415; 80307 ×4; 82550; 85025; 80053; 81001; 71045; 70450; 94660; 93010; 31500; J2250 ×3; J3490 ×2; J2704; S0164; J7120 ×2; 94002

== ENCOUNTER 2019-06-10 07:02 | Emergency (ER) | payer SELFPAY ==
[2019-06-10 07:35] VITALS: BP 119/83
== END 2019-06-10 07:50 | disposition left against medical advice (07) ==
LOC: ER 07:02
DX: Z53.21 Procedure and treatment not carried out due to patient leaving prior to being seen by health care provider (principal)

== ENCOUNTER 2019-09-27 12:10 | Emergency (ER) | payer SELFPAY ==
--- NOTE | 2019-09-27 13:13 | ER Document Report ---
ED Medical Screen (RME) - General Chief Complaint: Abscess Stated Complaint: ABSCESS Time Seen by Provider: 09/27/19 13:08 Mode of Arrival: Ambulatory Information source: Patient Notes: 29-year-old male presented to ED for abscess to the left arm. He did inject self inject meth IV about a week ago but he states it was on the other side of the arm. He is alert oriented respirations regular nonlabored speaking in full sentences. He does have a very large abscess to the posterior left lower arm. He states he smokes a pack a day does not drink does use meth and marijuana. I have greeted and performed a rapid initial assessment of this patient. A comprehensive ED assessment and evaluation of the patient, analysis of test results and completion of medical decision making process will be conducted by an additional ED providers. TRAVEL OUTSIDE OF THE [place] IN LAST 30 DAYS: No - Related Data Allergies/Adverse Reactions: poison maria l Allergy (Severe, Uncoded 09/27/19 13:02) Past Medical History Renal/ Medical History: Denies: Hx Peritoneal Dialysis - Immunizations Hx Diphtheria, Pertussis, Tetanus Vaccination: Yes Physical Exam - Vital signs Vitals: Temp Pulse Resp BP Pulse Ox 98.5 F 82 18 147/83 H 100 09/27/19 12:16 09/27/19 12:16 09/27/19 12:16 09/27/19 12:16 09/27/19 12:16 Course - Vital Signs Vital signs: Temp Pulse Resp BP Pulse Ox 98.5 F 82 18 147/83 H 100 09/27/19 12:16 09/27/19 12:16 09/27/19 12:16 09/27/19 12:16 09/27/19 12:16
--- NOTE | 2019-09-27 13:43 | RADIOLOGY REPORT (SQ) ---
EXAM DESCRIPTION: FOREARM LEFT COMPLETED DATE/TIME: 09/27/2019 1:31 pm REASON FOR STUDY: Large abscess, IV drug use COMPARISON: None. NUMBER OF VIEWS: Two views. TECHNIQUE: Two radiographic images acquired of the left forearm, including elbow and wrist in at [address] one projection. LIMITATIONS: None. FINDINGS: MINERALIZATION: Normal. BONES: No acute fracture. No worrisome bone lesions. SOFT TISSUES: There is a around 5.4 cm soft tissue hyperdensity present in the anterior proximal soft tissues of the left forearm. OTHER: No other significant finding. IMPRESSION: 5.4 cm hyperdense soft tissue mass that may represent the abscess described in the exam history. Recommend correlation with physical exam. No evidence of a radiopaque retained foreign bod y or other bony abnormality. TECHNICAL DOCUMENTATION: JOB ID: [id number] 2010 [employer]- All Rights Reserved Reading location - IP/workstation name: [email or web address]
[2019-09-27 13:50] LABS: ABSOLUTE EOSINOPHILS # (AUTO) 0.1 10^3/uL (0.0-0.6); ABSOLUTE LYMPHOCYTES (AUTO) 1.4 10^3/uL (0.5-4.7); ABSOLUTE NEUT (AUTO) 10.1 10^3/uL (1.7-8.2); APPEARANCE,URINE CLEAR; BASOPHILS % (AUTO) 0.3 % (0-2); BILIRUBIN,URINE NEGATIVE (NEGATIVE); COLOR,URINE YELLOW; EOSINOPHILS % (AUTO) 0.4 % (0-6); GLUCOSE, URINE NEGATIVE (NEGATIVE); HEMATOCRIT 41.4 % (37.9-51.0); HEMOGLOBIN 14.4 g/dL (13.5-17.0); KETONES,URINE NEGATIVE (NEGATIVE); LEUKOCYTE ESTERASE,URINE NEGATIVE (NEGATIVE); LYMPHOCYTES % (AUTO) 10.8 % (13-45); MEAN CORPUSCULAR HGB CONC 34.8 g/dL (32.0-36.0); MEAN CORPUSCULAR VOLUME 86 fl (80-97); MONOCYTES % (AUTO) 8.1 % (3-13); NITRITE,URINE NEGATIVE (NEGATIVE); PLATELET COUNT 317 10^3/uL (150-450); PROTEIN,URINE NEGATIVE (NEGATIVE); RED BLOOD COUNT 4.82 10^6/uL (4.35-5.55); SEGMENTED NEUTROPHILS % (AUTO) 80.4 % (42-78); TOTAL CELLS COUNTED % (AUTO) 100 %; URINE SPECIFIC GRAVITY 1.019; WHITE BLOOD COUNT 12.5 10^3/uL (4.0-10.5)
[2019-09-27 14:03] LABS: ALBUMIN 4.1 g/dL (3.5-5.0); ALKALINE PHOSPHATASE 66 U/L (38-126); ANION GAP 8 (5-19); ASPARTATE AMINO TRANSFERASE 17 U/L (17-59); BILIRUBIN,TOTAL 0.5 mg/dL (0.2-1.3); BLOOD UREA NITROGEN 5 mg/dL (7-20); CALCIUM 9.4 mg/dL (8.4-10.2); CARBON DIOXIDE 29 mmol/L (22-30); CHLORIDE 99 mmol/L (98-107); GLUCOSE 89 mg/dL (75-110); POTASSIUM 4.1 mmol/L (3.6-5.0); TOTAL PROTEIN 7.4 g/dL (6.3-8.2)
[2019-09-27 14:04] LABS: ACETAMINOPHEN < 10 ug/mL (10-30)
[2019-09-27 14:06] LABS: URINE BARBITURATES SCREEN NEGATIVE; URINE BENZODIAZEPINES SCREEN NEGATIVE; URINE COCAINE SCREEN NEGATIVE; URINE METHADONE SCREEN NEGATIVE; URINE PHENCYCLIDINE SCREEN NEGATIVE
[2019-09-27 14:07] LABS: URINE MARIJUANA (THC) SCREEN UNCONFIRMED POSITIVE
[2019-09-27] MEDS ORDERED: LIDOCAINE 2% INJ (20 MG/ML) 20 ML MDV INJ ONE (14:38)
--- NOTE | 2019-09-27 14:40 | ER Document Report ---
ED Skin Rash/Insect Bite/Abscs - General Chief Complaint: Abscess Stated Complaint: ABSCESS Time Seen by Provider: 09/27/19 13:08 Mode of Arrival: Ambulatory Notes: 29-year-old man presents with a abscess on the dorsal aspect of the left forearm. He denies any injury, insect bite or other preceding event. Denies use of IV drugs. Notes that the area has developed over the past 3 days and worsened over the past 24 hours. He describes pain and swelling and discomfort. He has had a prior abscess which required draining. Denies diabetes or immunocompromise status. TRAVEL OUTSIDE OF THE [place] IN LAST 30 DAYS: No - Related Data Allergies/Adverse Reactions: poison maria l Allergy (Severe, Uncoded 09/27/19 13:02) Past Medical History - General Information source: Patient - None - Social History Smoking Status: Current Every Day Smoker Drug Abuse: Marijuana, Methamphetamine Family History: Reviewed & Not Pertinent Patient has homicidal ideation: No Renal/ Medical History: Denies: Hx Peritoneal Dialysis - Immunizations Hx Diphtheria, Pertussis, Tetanus Vaccination: Yes Review of Systems - Review of Systems Notes: Constitutional: Negative for fever. HENT: Negative for sore throat. Eyes: Negative for visual changes. Cardiovascular: Negative for chest pain. Respiratory: Negative for shortness of breath. Gastrointestinal: Negative for abdominal pain, vomiting or diarrhea. Genitourinary: Negative for dysuria. Musculoskeletal: Negative for back pain. Skin: + Left forearm abscess Neurological: Negative for headaches, weakness or numbness. 10 point ROS negative except as marked above and in HPI. Physical Exam - Vital signs Vitals: Temp Pulse Resp BP Pulse Ox 98.5 F 82 18 147/83 H 100 09/27/19 12:16 09/27/19 12:16 09/27/19 12:16 09/27/19 12:16 09/27/19 12:16 - Notes Notes: PHYSICAL EXAMINATION: Physical Exam: General: Well-nourished well-developed 29-year-old male in no acute distress HEENT: NC/AT, pupils equal round and reactive to light, MM moist,nares clear, oropharynx clear, airway patent Neck: supple, no adenopathy, no masses. Good range of motion Lungs: clear, no wheezing, no rales no rhonchi CVS: Regular rate and rhythm no murmur gallop or rub Abdomen: Soft, active, nontender, no masses, no hepatosplenomegaly Ext: No edema, clubbing or cyanosis. Neuro: Alert and responsive, moving all 4 extremities on command, cranial nerves intact, no focal findings Skin: 4 x 4 centimeter raised fluctuant swelling on the dorsal aspect of the left midforearm, surrounding erythema, central pointing fluctuance. PSYCH: Normal mood, normal affect. Course - Re-evaluation Re-evalutation: 09/27/19 15:57 An incision and drainage procedure was performed on the abscess, a wound culture was performed and patient is given a dose of Bactrim in the emergency department along with dose of pain medication. He is instructed to return to the emergency room in 48 hours for packing removal and recheck. Patient acknowledges understanding of this plan and will follow-up as noted - Vital Signs Vital signs: Temp Pulse Resp BP Pulse Ox 98.5 F 82 18 147/83 H 100 09/27/19 12:16 09/27/19 12:16 09/27/19 12:16 09/27/19 12:16 09/27/19 12:16 - Laboratory Result Diagrams: 09/27/19 13:35 09/27/19 13:35 Laboratory results interpreted by me: 09/27/19 09/27/19 09/27/19 13:35 13:35 13:35 WBC 12.5 H Lymph % (Auto) 10.8 L Absolute Neuts (auto) 10.1 H Seg Neutrophils % 80.4 H Sodium 136.1 L BUN 5 L Urine Urobilinogen 4.0 H Acetaminophen < 10 L Procedures - Incision and Drainage Left Dorsal Arm Time completed: 15:59 Type: Simple Anesthetic type: 2% Lidocaine mL's of anesthetic: 5 Blade size: 11 I&D procedure: Chlorprep applied, Iodoform packing placed, Sterile dressing applied Incision Method: Incision made by scalpel Amount/type of drainage: 15 Notes: 09/27/19 16:00 Patient tolerated procedure well with no complications. Discharge - Discharge Clinical Impression: Abscess of left forearm, Encounter for incision and drainage procedure Condition: Good Disposition: HOME, SELF-CARE Instructions: Trimethoprim-Sulfa ([facility]), Post Incision and Drainage Additional Instructions: Your seen in the emergency department today with an abscess on the left forearm, an incision and drainage procedure with packing was performed. Please take the medications as prescribed Bactrim, ibuprofen. Return to the emergency department on Saturday for packing removal. If you note worsening in your condition or other concerns you may return to the emergency department sooner. HOME CARE INSTRUCTIONS & INFORMATION: Thank you for choosing us for your medical needs. We hope you're satisfied with the care you received. After you leave, you must properly care for your problem and, at the same time, observe its progress. Any condition can change. Some illnesses can change rapidly over hours or days. If your condition worsens, return to the Emergency Department or see your physician promptly. ABOUT YOUR X-RAYS AND EKG'S: If you had an EKG or X-rays taken, they have been read by the Emergency Physician. The X-rays and EKG's will also be read by a Radiologist or [employer] Added Assessor within 24 hours. If discrepancies are noted, you will be notified by telephone. Please be certain the ED has a correct telephone number & address where you can be reached. Also, realize that some fractures or abnormalities do not show up on initial X-rays. If your symptoms continue, see your physician. ABOUT YOUR LABORATORY TEST: If you had laboratory tests, the results have been reviewed by the Emergency Physician. Some test results (for example cultures) may not be available for several days. You will be contacted if any test result shows you need additional treatment. Please be certain the ED has a correct telephone number and address where you can be reached. ABOUT YOUR MEDICATIONS: You will receive instructions on how to take your medicine on the prescription label you receive. Additional information may be provided by the Pharmacy. If you have questions afterwards, call the ED for clarification or further instructions. Some prescribed medications may cause drowsiness. Do not perform tasks such as driving a car or operating machinery without consulting your Pharmacist. If you feel you need a refill of pain medication, your condition will need re-evaluation. Please do not call for a refill of any medication. ABOUT YOUR SIGNATURE: Signature of this document acknowledges to followin. Understanding that you received emergency treatment and that you may be r eleased before al medical problems are known or treated. Please be certain the ED has a correct phone number & address where you can be reached. 2. Acknowledgement that you will arrange for follow-up care as recommended. 3. Authorization for the Emergency Physician to provide information to your follow-up Physician in order to maximize your care. AT ANY TIME, IF YOUR SYMPTOMS CHANGE SIGNIFICANTLY OR WORSEN OR YOU DEVELOP NEW SYMPTOMS, RETURN TO THE EMERGENCY DEPARTMENT IMMEDIATELY FOR RE-EVALUATION. OUR GOAL IS TO PROVIDE EXCELLENT MEDICAL CARE! WE HOPE THAT WE HAVE MET YOUR EXPECTATIONS DURING YOUR EMERGENCY DEPARTMENT VISIT AND THAT YOU FEEL YOU HAVE RECEIVED EXCELLENT CARE! Prescriptions: Sulfamethoxazole/Trimethoprim [Bactrim Ds Tablet] 1 tab PO BID #20 tablet Ibuprofen [Motrin 800 mg Tablet] 800 mg PO Q8H PRN #30 tab PRN Reason:
[2019-09-27] MEDS ORDERED: HYDROCODONE/ACETAMINOPHEN 5-325 MG TABLET PO ONE (15:55)
[2019-09-27 19:29] VITALS: BP 109/69
== END 2019-09-27 17:00 | disposition home or self-care (01) ==
LOC: ER 12:10
DX: L02.414 Cutaneous abscess of left upper limb (principal); F15.10 Other stimulant abuse, uncomplicated; F12.10 Cannabis abuse, uncomplicated; F17.200 Nicotine dependence, unspecified, uncomplicated; Z91.048 Other nonmedicinal substance allergy status
CPT/HCPCS: 10060; 99283; 36415; 87040; 87070; 87205; 80307 ×2; 85025; 87077; 80053; 81001; 73090; J3490

== ENCOUNTER 2019-12-17 00:54 | Emergency (ER) | payer SELFPAY ==
[2019-12-17 01:22] VITALS: BP 114/76
[2019-12-17] MEDS ORDERED: NORMAL SALINE 1000 ML 1,000 ML IV ONE (02:38)
[2019-12-17] MEDS ORDERED: ACETAMINOPHEN 325 MG TABLET PO ONE (02:38)
[2019-12-17] MEDS ORDERED: ONDANSETRON HCL INJ/PF 4 MG/2 ML SDV IV ONE (02:38)
--- NOTE | 2019-12-17 02:40 | ER Document Report ---
ED General - General Chief Complaint: Flu Symptoms Stated Complaint: FEELING UNWELL Time Seen by Provider: 12/17/19 02:30 Notes: Patient is a 29-year-old male that comes emergency department for chief complaint of chills, feeling feverish, body aches, feeling weak, vomiting twice, and having 3-4 loose stools since yesterday. He states he feels like "I have the flu". He denies cough, congestion, sore throat, headache, chest pain. He does have some mild general and upper abdominal tenderness reported. He denies any sick contacts. He smokes, denies heavy alcohol use, smokes marijuana but denies recreational drugs otherwise, denies surgeries except orthopedic surgery to the left hand. He denies any prescribed medications or diagnosed medical history. TRAVEL OUTSIDE OF THE [place] IN LAST 30 DAYS: No - Related Data Allergies/Adverse Reactions: poison maria l Allergy (Severe, Uncoded 09/27/19 13:02) Past Medical History - General Information source: Patient - Social History Smoking Status: Current Every Day Smoker Smoking Education Provided: Yes - <3 min Drug Abuse: None Lives with: Spouse/Significant other Family History: Reviewed & Not Pertinent Renal/ Medical History: Denies: Hx Peritoneal Dialysis Surgical Hx: Negative - Immunizations Hx Diphtheria, Pertussis, Tetanus Vaccination: Yes Review of Systems - Review of Systems Constitutional: See HPI EENT: No symptoms reported Cardiovascular: No symptoms reported Respiratory: No symptoms reported Gastrointestinal: See HPI Genitourinary: No symptoms reported Male Genitourinary: No symptoms reported Musculoskeletal: No symptoms reported Skin: No symptoms reported Hematologic/Lymphatic: No symptoms reported Neurological/Psychological: No symptoms reported Physical Exam - Vital signs Vitals: Temp Pulse Resp BP Pulse Ox 97.6 F 98 20 114/76 100 12/17/19 01:19 12/17/19 01:19 12/17/19 01:19 12/17/19 01:19 12/17/19 01:19 - Notes Notes: GENERAL: Patient is drowsy but easily aroused. HEAD: Normocephalic, atraumatic. EYES: Pupils equal, round, and reactive to light. Extraocular movements intact. ENT: Oral mucosa dry, tongue midline. Oropharynx unremarkable. Airway patent. NECK: Full range of motion. Supple. Trachea midline. No lymphadenopathy. LUNGS: Clear to auscultation bilaterally, no wheezes, rales, or rhonchi. No respiratory distress. Non-tender chest wall. HEART: Regular rate and rhythm. No murmur ABDOMEN: Soft, non-tender. Non-distended. EXTREMITIES: Moves all 4 extremities spontaneously. No edema, normal radial and dorsalis pedis pulses bilaterally. No cyanosis. BACK: no cervical, thoracic, lumbar midline tenderness. No saddle anesthesia, normal distal neurovascular exam. Moves all extremities in full range of motion. NEUROLOGICAL: Alert and oriented x3. Normal speech. Cranial nerves II through XII grossly intact. Strength 5/5 in all extremities. PSYCH: Irritable but ultimately cooperative SKIN: Warm, dry, normal turgor. No rashes or lesions noted. Course - Re-evaluation Re-evalutation: Patient is very drowsy but arousable. He is also irritable. However when I arouse him he does not have any signs of distress. Lungs are clear, abdomen is soft and benign, ENT exam is unremarkable. Vital signs are also unremarkable. CBC unremarkable, chemistry unremarkable, urinalysis shows elevated specific gravity and also shows some white blood cells. I discussed with patient again, I asked if he has dysuria, discharge, concerns for STD. He states possibly, he did agree to testing for gonorrhea and chlamydia, he also agrees to testing for COVID-19. Patient was provided with antibiotics and I discussed the details of this and he will be contacted later with his results, patient states understanding and agreement, states he is ready to leave now. Nursing staff informed me that patient did receive Rocephin and azithromycin, however patient refused COVID-19 testing just before discharge and left. Final testing noted showing positive chlamydia. 12/17/19 06:46 I called the contact number listed. Patient's mother answer the phone. Patient's mother states that patient is currently homeless and does not have a phone, she states he always lists her number as he is contact number. However patient did not give me permission to give the mother his details therefore these were not given, mother states that she will inform patient that his final laboratory tests are available and he can contact us for additional details. - Vital Signs Vital signs: Temp Pulse Resp BP Pulse Ox 97.6 F 98 20 114/76 100 12/17/19 01:19 12/17/19 01:12/17/19 01:12/17/19 01:19 12/17/19 01:19 - Laboratory Result Diagrams: 12/17/19 02:45 12/17/19 02:45 Laboratory results interpreted by me: 12/17/19 12/17/19 12/17/19 02:45 02:45 03:45 Lymph % (Auto) 9.9 L Seg Neutrophils % 79.8 H Glucose 111 H Ur Leukocyte Esterase Chlamydia DNA (PCR) DETECTED H 12/17/19 03:55 Lymph % (Auto) Seg Neutrophils % Glucose Ur Leukocyte Esterase SMALL H Chlamydia DNA (PCR) Discharge - Discharge Clinical Impression: Chills, Body aches, Nausea vomiting and diarrhea, Urethritis Condition: Stable Disposition: HOME, SELF-CARE Additional Instructions: You have been treated for dehydration. Take Zofran if needed for nausea/vomiting, drink plenty of fluids, rest. Start with bland foods. This is most likely viral and should resolve with time. You have been tested for COVID- 19, please quarantine while awaiting your results, see additional instructions below. You have also been tested for urethritis and will be contacted with these results, you were already treated for this tonight, your partner will also require treatment if these tests are positive. Follow-up with primary care. Return for any concerning symptoms including spiking fever, difficulty breathing, uncontrolled vomiting, or any other concerning or worsening symptoms. As a person under investigation for COVID-19, the [place] Department of Health and Human Services (division on public health) advises you to adhere to the following guidance until your test results are reported to you. If your test result is positive, you will receive additional information from your provider and your local health department at that time. Remain at home until you are cleared by the health provider or public health authorities. Keep a log of visitors to your home, notify any visitors to your home of your isolation status. If you plan to move to a new address or leave the [facility], notify the local health department in your County. Call your Doctor or seek care if you have an urgent medical need. Before seeking medical care, call him to get instructions from the provider before arriving at the medical office, clinic, or hospital. Notify them that you are being tested for the virus (COVID-19) so that arrangements can be made, as necessary, to prevent transmission to others in the healthcare setting. Next, notify the local health department in your county. If a medical emergency arises and you need to call 911, inform the first res ponders that you are being tested for the virus that causes COVID-19. Next, notify the local health department in your county. Prescriptions: Ondansetron [Zofran Odt 4 mg Tablet] 1 - 2 tab PO Q4H PRN #15 tab.rapdis PRN Reason: For Nausea/Vomiting
[2019-12-17 02:59] LABS: ABSOLUTE EOSINOPHILS # (AUTO) 0.1 10^3/uL (0.0-0.6); ABSOLUTE LYMPHOCYTES (AUTO) 0.9 10^3/uL (0.5-4.7); ABSOLUTE MONOCYTES (AUTO) 0.8 10^3/uL (0.1-1.4); ABSOLUTE NEUT (AUTO) 7.2 10^3/uL (1.7-8.2); BASOPHILS % (AUTO) 0.3 % (0-2); EOSINOPHILS % (AUTO) 1.5 % (0-6); HEMATOCRIT 47.6 % (37.9-51.0); HEMOGLOBIN 16.6 g/dL (13.5-17.0); LYMPHOCYTES % (AUTO) 9.9 % (13-45); MEAN CORPUSCULAR HEMOGLOBIN 30.4 pg (27.0-33.4); MEAN CORPUSCULAR HGB CONC 34.8 g/dL (32.0-36.0); MEAN CORPUSCULAR VOLUME 87 fl (80-97); MONOCYTES % (AUTO) 8.5 % (3-13); PLATELET COUNT 302 10^3/uL (150-450); RED BLOOD COUNT 5.46 10^6/uL (4.35-5.55); RED CELL DISTRIBUTION WIDTH 13.6 % (11.5-14.0); SEGMENTED NEUTROPHILS % (AUTO) 79.8 % (42-78); TOTAL CELLS COUNTED % (AUTO) 100 %
[2019-12-17 03:09] LABS: ALBUMIN 4.5 g/dL (3.5-5.0); ALKALINE PHOSPHATASE 68 U/L (38-126); ANION GAP 8 (5-19); ASPARTATE AMINO TRANSFERASE 18 U/L (17-59); BILIRUBIN,DIRECT 0.2 mg/dL (0.0-0.4); BILIRUBIN,TOTAL 0.6 mg/dL (0.2-1.3); BLOOD UREA NITROGEN 16 mg/dL (7-20); CALCIUM 9.4 mg/dL (8.4-10.2); CARBON DIOXIDE 30 mmol/L (22-30); CHLORIDE 102 mmol/L (98-107); GLUCOSE 111 mg/dL (75-110); POTASSIUM 4.4 mmol/L (3.6-5.0); TOTAL PROTEIN 7.4 g/dL (6.3-8.2)
[2019-12-17 04:11] LABS: APPEARANCE,URINE SLIGHTLY-CLOUDY; BILIRUBIN,URINE NEGATIVE (NEGATIVE); COLOR,URINE YELLOW; GLUCOSE, URINE NEGATIVE (NEGATIVE); KETONES,URINE NEGATIVE (NEGATIVE); LEUKOCYTE ESTERASE,URINE SMALL (NEGATIVE); NITRITE,URINE NEGATIVE (NEGATIVE); PROTEIN,URINE NEGATIVE (NEGATIVE); URINE SPECIFIC GRAVITY 1.031; UROBILINOGEN,URINE NEGATIVE mg/dL (<2.0)
[2019-12-17] MEDS ORDERED: CEFTRIAXONE INJ 250 MG VIAL IM ONE ×2 (04:24→04:36)
[2019-12-17] MEDS ORDERED: AZITHROMYCIN 250 MG TABLET PO ONE (04:36)
[2019-12-17 06:35] LABS: CHLAM PCR DETECTED (NOT DETECT)
== END 2019-12-17 04:56 | disposition home or self-care (01) ==
LOC: ER 00:54
DX: A56.01 Chlamydial cystitis and urethritis (principal); M79.10 Myalgia, unspecified site; R11.2 Nausea with vomiting, unspecified; R19.7 Diarrhea, unspecified; R50.9 Fever, unspecified; R53.1 Weakness; F17.200 Nicotine dependence, unspecified, uncomplicated; F12.10 Cannabis abuse, uncomplicated
CPT/HCPCS: 99283; 96372; 96361; 96374; 36415; 83690; 85025; 80053; 81001; 87491; 87591; J2405; J7030; J0696

== ENCOUNTER 2020-04-16 16:37 | Emergency (ER) | payer SELFPAY ==
--- NOTE | 2020-04-16 16:56 | ER Document Report ---
ED General - General TRAVEL OUTSIDE OF THE [place] IN LAST 30 DAYS: No <CONSUELO DEMPSEY - Last Filed: 04/16/20 19:25> <HANNAH MEADE - Last Filed: 04/16/20 20:21> <LE FELDMAN - Last Filed: 04/17/20 08:11> - General Chief Complaint: Possible Overdose Stated Complaint: POSSIBLE OVERDOSE Time Seen by Provider: 04/16/20 16:55 Primary Care Provider: [facility] [Outside] - Follow up as needed [facility] [Outside] - Follow up as needed [facility] [Outside] - Follow up as needed - HPI Notes: 29-year-old male presents to the emergency room via EMS for a heroin overdose. He was seen in the field with agonal respirations, pinpoint pupils, cool and pale as well as cyanotic. EMS did initially find him unresponsive. They did administer 4 mg of IV Narcan in the field as well as 4 mg of Zofran. Patient typically uses methamphetamine, he usually shoots up methamphetamine, this was the first time allegedly that he is used heroin. When arriving to the emergency room, patient was able to respond to me with yes or no, appear to be obtunded, he did require 3 L of oxygen to keep his pulse oxygenation above 92%. At this time we did administer 2 mg of Narcan. Unable to obtain a history at this time. (CONSUELO DEMPSEY) - Related Data Allergies/Adverse Reactions: poison maria l Allergy (Severe, Uncoded 09/27/19 13:02) Past Medical History - General Information source: Patient - Social History Smoking Status: Unknown if Ever Smoked Family History: Reviewed & Not Pertinent Renal/ Medical History: Denies: Hx Peritoneal Dialysis - Immunizations Hx Diphtheria, Pertussis, Tetanus Vaccination: Yes <CONSUELO DEMPSEY - Last Filed: 04/16/20 19:25> - Social History Smoking Status: Current Every Day Smoker Cigarette use (# per day): Yes - Pack a day Smoking Education Provided: Yes - 3min Frequency of alcohol use: Occasional Drug Abuse: Heroin, Marijuana, Methamphetamine Lives with: Homeless Patient has suicidal ideation: No Patient has homicidal ideation: No - Past Medical History Cardiac Medical History: Reports: None Pulmonary Medical History: Reports: None EENT Medical History: Reports: None Neurological Medical History: Reports: None Endocrine Medical History: Reports: None Renal/ Medical History: Reports: None Malignancy Medical History: Reports None GI Medical History: Reports: None Musculoskeletal Medical History: Reports Hx Musculoskeletal Deformity, Reports Hx Musculoskeletal Trauma Skin Medical History: Reports None Psychiatric Medical History: Reports: None Traumatic Medical History: Reports: Hx Fractures - Right ankle Infectious Medical History: Reports: None Past Surgical History: Reports: Hx Orthopedic Surgery - Left palm <LE FELDMAN - Last Filed: 04/17/20 08:11> Review of Systems - Review of Systems -: Yes ROS unobtainable due to patient's medical condition <CONSUELO DEMPSEY - Last Filed: 04/16/20 19:25> Physical Exam <CONSUELO DEMPSEY - Last Filed: 04/16/20 19:25> - Vital signs Vitals: BP 127/88 H 04/16/20 16:40 - Notes Notes: MEDICATIONS: I agree with the patient medications as charted by the RN. ALLERGIES: I agree with the allergies as charted by the RN. PAST MEDICAL HISTORY/PAST SURGICAL HISTORY: Reviewed and agree as charted by RN. SOCIAL HISTORY: Reviewed and agree as charted by RN. FAMILY HISTORY: No significant familial comorbid conditions directly related to patient complaint EXAM: Reviewed vital signs as charted by RN. PHYSICAL EXAMINATION:reviewed vital signs by RN GENERAL: Chronically ill, malnourished and in no acute distress. HEAD: Atraumatic, normocephalic. EYES: Pupils constricted bilaterally, equal. ENT: Nares patent, oropharynx clear without exudates. Moist mucous membranes. NECK: Normal range of motion, supple without lymphadenopathy LUNGS: Breath sounds clear to auscultation bilaterally and equal. No wheezes rales or rhonchi. HEART: Regular rate and rhythm without murmurs ABDOMEN: Soft, nontender, nondistended abdomen. No guarding, no rebound. No masses appreciated. Musculoskeletal: Normal range of motion, no pitting or edema. No cyanosis. NEUROLOGICAL: Orientated to place, responds to questions with yes or no. PSYCH: Normal mood, normal affect. SKIN: Warm, Dry, normal turgor, no rashes or lesions noted. (CONSUELO DEMPSEY) Course - Laboratory Results Result Diagrams: 04/16/20 17:00 04/16/20 17:00 <CONSUELO DEMPSEY - Last Filed: 04/16/20 19:25> - Laboratory Results Result Diagrams: 04/16/20 17:00 04/16/20 17:00 <HALINAHANNAH - Last Filed: 04/16/20 20:21> - Laboratory Results Result Diagrams: 04/16/20 17:00 04/16/20 17:00 Critical Laboratory Results Reviewed: No Critical Results - Radiology Results Critical Radiology Results Reviewed: No Critical Results <LE FELDMAN - Last Filed: 04/17/20 08:11> - Re-evaluation Re-evalutation: 04/16/20 19:30 Afebrile, patient on 3 L of oxygen to keep him greater than 92%. Nurses notes reviewed. Patient given 2 mg of Narcan IVP, after receiving the Narcan, patient was able to open his eyes on command, able to say the year where he was. [employer] +2 bilaterally and equally. Able to follow commands. CBC negative for leukocytosis or anemia, CMP negative for hepatic or renal dysfunction. 1914-I did consult with Dr. Meño Kowalski, hospitalist, to come down to see patient for admit for observation due to requiring supplemental oxygen with multiple doses of Narcan, Covid test is pending. He states that he will come down to evaluate patient and is waiting for the Covid result. 1929-pt did require 2L NC of supplemental oxygen to keep his pulse ox greater than 92%. Consulted with Dr. Adwoa Dey, ER supervising physician to give patient another 2mg of Narcan IVP. 1944-patient given another 2 mg of Narcan IVP, pulse oxygenation did go up to 100%, I did remove his supplemental oxygen. 1999-disposition given to Essence Cresencio, (CONSUELO DEMPSEY) 04/16/20 21:[address] Kowalski at 9 PM to find out when he was coming to examine the patient as Consuelo Watts had stated he was planning to admit the patient. He states he does not know if he is definitely to admit the patient or not that he will come down and examined the patient he has not had time to come and look at them as yet. Patient has been given Narcan multiple times the last time was at 1945. 04/16/20 22:49 I have spoken with Dr. Kowalski concerning this patient. We do not feel it safe to discharge this patient at this time I have informed him that according to regulations that he is to assume care of this patient. He states he will come down and see the patient again in a little while and evaluate him. 04/17/20 04:33 Patient is much more awake responsive able to answer questions appropriately. VITAL SIGNS: Pulse is 63 respirations are 14 pressure is 109/68. He is alert oriented respirations regular speaking in full sentences GENERAL: No acute distress, non-toxic appearance. HEAD: Normal with no signs of head trauma. NECK: Normal range of motion, no tenderness, supple, no lymphadenopathy, No adenopathy, no JVD. CHEST: Clear breath sounds bilaterally. No wheezes, rales, or rhonchi. CARDIAC: Regular rate and rhythm. S1 and S2, without murmurs, gallops, or rubs. VASCULAR: No Edema. Peripheral pulses normal and equal in all extremities. ABDOMEN: Normal and soft with no tenderness, no masses or pulsatile masses. GASTROINTESTINAL: Bowel sounds normal GENITOURINARY: Normal, No tenderness LYMPATHTIC: No lymphadenopathy noted. MUSCULOSKELETAL: Good range of motion of all major joints. Extremities without clubbing, cyanosis or edema. NEUROLOGICAL: Alert and oriented x 3. No focal sensory or strength deficits. Speech normal. Follows commands appropriately. PSYCHIATRIC: Normal Affect, judgement and mood. SKIN: Normal appearance with no rashes or lesions. (LE FELDMAN) - Vital Signs Vital signs: Temp Pulse Resp BP Pulse Ox 97.4 F 13 109/68 92 04/17/20 04:01 04/17/20 04:01 04/17/20 04:01 04/17/20 04:01 - Laboratory Results Laboratory Results Interpreted: 04/16/20 04/17/20 17:00 03:46 Carbon Dioxide 31 H Urine Protein 30 H Ur Leukocyte Esterase TRACE H Salicylates < 1.0 L Acetaminophen < 10 L Discharge <CONSUELO DEMPSEY - Last Filed: 04/16/20 19:25> <HANNAH MEADE - Last Filed: 04/16/20 20:21> <LE FELDMAN - Last Filed: 04/17/20 08:11> - Discharge Clinical Impression: Substance use, Polysubstance (including opioids) dependence, daily use Condition: Stable Disposition: HOME, SELF-CARE Additional Instructions: You have been evaluated by both medical and behavioral health teams for substance use. You have been deemed appropriate for discharge. While in the emergency department you received the following services/or had access to: Medical screening and assessment, nursing services, dietary services, pharmacological services, one-on-one counseling and/or psychotherapy, environmental services, and continuous observation by a patient senior safety management consultant. Altered Mental Status (due to polysubstance use) An altered mental status is a change in the normal functioning of the brain. This alteration of function can range from minor decreased brain function with some forgetfulness and confusion to complete loss of consciousness and coma. There are many possible causes of an altered mental status and include brain injuries such as trauma or strokes, problems with oxygen supply to the brain, fever and infections of the brain and/or elsewhere in the body, metabolic abnormalities such as low or high blood sugar, overdoses or excessive medication ingestion, and mental and psychiatric illnesses. Sometimes the altered mental status resolves and a definite cause is not determined. If a cause for your altered mental status was found, it has likely been corrected. Your evaluation has not shown any condition that requires that you be admitted to the hospital. It is believed that you are safe to leave and return to your home. If you have a return of your symptoms, you should return for re-evaluation. NARCOTIC / OPIOD ABUSE: Narcotics and opiods are pain-relieving drugs that are often abused. They are addicting. Narcotics cause euphoria, but it often takes increasing amounts to "feel good" and avoid withdrawal symptoms. Overdose of narcotics causes small pupils, coma, and decreased breathing. It's a common cause of . Purity of street narcotics is unpredictable. Injection of narcotics is risky for abscesses, endocarditis (heart infection), pneumonia, and AIDS. Withdrawal from narcotics causes goose bumps, watery mouth, sweating, nasal congestion, muscle aches, abdominal cramps, vomiting, and diarrhea. There's often restlessness and confusion. Treatment programs are available, but you must make the decision to quit. Medication (such as clonidine) can be prescribed to control the symptoms of withdrawal. AMPHETAMINE / METHAMPHETAMINE ABUSE: Amphetamines are addicting stimulants. Amphetamines overstimulate the nervous system and give a false feeling of power and mastery. These drugs may be obtained as prescription pills for weight loss, narcolepsy, or attention-deficit disorder. More often they're bought as an illegal street drug, methamphetamine (crank, crystal, speed). Using amphetamines repeatedly can lead to serious medical problems including malnutrition, severe depression, and paranoia. It can take increasing amounts to feel good. Eventually, there will be a "burn out." When you go off amphetamines there is a period of depression that may last for weeks or even months. High doses of amphetamines can cause seizures, confusion, hallucinations, delusions, high blood pressure, muscle damage, heart damage, or sudden . Many times these deadly complications occur even with "normal" doses. Injection of amphetamines is risky for developing abscesses, endocarditis (heart infection), pneumonia, and AIDS. Withdrawal from amphetamines often causes anxiety, depression, and drug cravings. Some users become paranoid and psychotic. There may be cramps, nausea, and vomiting. Many treatment programs are available, but you must make the decision to quit. Medication can be prescribed to control the symptoms of amphetamine [place] (beta blockers or benzodiazepines). Withdrawal symptoms may require tranquilizers. Follow up care: You are currently not involved in outpatient care, but you highly recommended to begin outpatient services. You have been given a community outpatient referral list to include phone numbers for [facility] and [facility] mobile crisis. You were also given information for shelters and food eagle and resources for substance use and detox facilities. You are highly recommended to immediately follow up with [facility] upon discharge. Substance use treatment is voluntary, but due to your chronic use of drugs, you would benefit from treatment. Your family and girlfriend are supportive of you following up with substance use treatment. A referral for community paramedics has been sent for you as well. This allows for additional support in the community. Your girlfriend agrees to be part of your discharge plan of care. She states she will be able to pick you up upon discharge and is able to drive you to [facility] for immediate follow up care. If you experience worsening or a significant change in your symptoms, notify the physician immediately, utilize mobile crisis, or return to the Emergency Department at any time for re-evaluation. Dr. Martinez was consulted to care management of this patient; attending physicians in agreement with recommendations and disposition. Referrals: [facility] [Outside] - Follow up as needed [facility] [Outside] - Follow up as needed [facility] [Outside] - Follow up as needed
--- NOTE | 2020-04-16 17:22 | RADIOLOGY REPORT (SQ) ---
EXAM DESCRIPTION: CHEST SINGLE VIEW IMAGES COMPLETED DATE/TIME: 04/16/2020 5:14 pm REASON FOR STUDY: AMS COMPARISON: 09/25/2018. EXAM PARAMETERS: NUMBER OF VIEWS: One view. TECHNIQUE: Single frontal radiographic view of the chest acquired. RADIATION DOSE: NA LIMITATIONS: None. FINDINGS: LUNGS AND PLEURA: Hazy parenchymal opacities in both lungs. No pleural effusion. No pneu mothorax. MEDIASTINUM AND HILAR STRUCTURES: No masses. Contour normal. HEART AND VASCULAR STRUCTURES: Heart normal in size. Normal vasculature. BONES: No acute findings. HARDWARE: None in the chest. OTHER: No other significant finding. IMPRESSION: HAZY PARENCHYMAL OPACITIES IN BOTH LUNGS, CONCERNING FOR PNEUMONIA. COULD BE DUE TO COV ID-19. TECHNICAL DOCUMENTATION: JOB ID: [id number] 2010 [employer]- All Rights Reserved Reading location - IP/workstation name: [email or web address]
[2020-04-16] MEDS ORDERED: NALOXONE HCL INJ 2 MG/2 ML DISP.SYRIN IV ONE ×2 (17:24→19:33)
[2020-04-16 17:45] LABS: ABSOLUTE EOSINOPHILS # (AUTO) 0.1 10^3/uL (0.0-0.6); ABSOLUTE LYMPHOCYTES (AUTO) 1.4 10^3/uL (0.5-4.7); ABSOLUTE MONOCYTES (AUTO) 0.7 10^3/uL (0.1-1.4); ABSOLUTE NEUT (AUTO) 6.9 10^3/uL (1.7-8.2); BASOPHILS % (AUTO) 0.4 % (0-2); EOSINOPHILS % (AUTO) 1.1 % (0-6); HEMATOCRIT 43.4 % (37.9-51.0); HEMOGLOBIN 14.9 g/dL (13.5-17.0); MEAN CORPUSCULAR HEMOGLOBIN 29.2 pg (27.0-33.4); MEAN CORPUSCULAR HGB CONC 34.4 g/dL (32.0-36.0); MEAN CORPUSCULAR VOLUME 85 fl (80-97); MONOCYTES % (AUTO) 7.7 % (3-13); PLATELET COUNT 330 10^3/uL (150-450); RED BLOOD COUNT 5.12 10^6/uL (4.35-5.55); RED CELL DISTRIBUTION WIDTH 12.9 % (11.5-14.0); SEGMENTED NEUTROPHILS % (AUTO) 75.8 % (42-78); TOTAL CELLS COUNTED % (AUTO) 100 %; WHITE BLOOD COUNT 9.1 10^3/uL (4.0-10.5)
[2020-04-16 18:02] LABS: ALKALINE PHOSPHATASE 58 U/L (38-126); ANION GAP 6 (5-19); ASPARTATE AMINO TRANSFERASE 22 U/L (17-59); BILIRUBIN,DIRECT 0.2 mg/dL (0.0-0.4); BILIRUBIN,TOTAL 0.5 mg/dL (0.2-1.3); BLOOD UREA NITROGEN 15 mg/dL (7-20); CALCIUM 9.3 mg/dL (8.4-10.2); CARBON DIOXIDE 31 mmol/L (22-30); CHLORIDE 103 mmol/L (98-107); GLUCOSE 80 mg/dL (75-110); POTASSIUM 4.1 mmol/L (3.6-5.0); TOTAL PROTEIN 7.2 g/dL (6.3-8.2)
[2020-04-16 18:03] LABS: ACETAMINOPHEN < 10 ug/mL (10-30); ALCOHOL < 10 mg/dL (NONE DETECTED); SALICYLATE < 1.0 mg/dL (2.0-20.0)
--- NOTE | 2020-04-16 20:09 | PSYCHOLOGICAL NOTE ---
Psych Note - Psych Note Date seen by psych provider: 04/16/20 Time seen by psych provider: 17:39 Psych Note: Reason for Consult: possible overdose [id number] Consent Permissions: belen Liu, Patient is a 29 year old male who presented to the [facility] ED today via EMS. Patient states, I ODd. When asked if he intentionally overdosed, patient denies. He states he took heroine and meth and hes never done the heroine before. Patient denies current suicidal and homicidal ideation, plan, and intent. He states he typically uses meth and marijuana, however recently wanted to try heroine he got from a friend. Patient reports history of depression in which he used to take medications from, from a doctor in [place]. Patient states he accidentally overdosed on meth a couple of years ago and went to treatment in [place]. He states at that time he accidentally overdosed on 4.5 grams of meth. Patient denies inpatient hospitalizations. He states he lives with his girlfriend and she likely does not know that he is here. He reports he does not know why he decided to try heroin as that is not typically his drug of choice. He denies any history of suicide attempts. Collateral: [id number] Attempted to call patients gaylefrienAlexa alamo ([phone]). No answer at this time. [phone] MotherBelle, Attempted to call patients Belle rodriguez. Mother was not aware he was here. States he is homeless and only calls him sporadically. Mother reports patient is a meth user and back in September 2018 patient overdosed on meth and was on life support at that time. She reports he was admitted to [facility] in 2019 and then brought him to [facility]. Reports he was in the hospital for about a week. Mother states they did not know if he was going to survive. Mother reports he was brought home and slept for about a week and then he left. Mother denies intentionally attempting suicide. She states anytime he ends up in the hospital, it is an accidental overdose. She reports last time he had a large amount of meth on him. She reports in 2019, he swallowed 4 grams of meth last time because girlfriend joke to him that the police were coming. She reports patient had went to a rehab facility in [place] after and left. Patient has been homeless for about 6-7 years. She states he moves from place to place. Reports patient was in penitentiary about 3 years ago, non-drug related. She reports patient has went to [facility] a few times, but states he worries if he stays longer he is going to get locked up. Mother denies family history of mental health. Patient is 1/8 children and he is the only one like this. Mother would like to come visit patient in the ED. 190 attempted patients girlfriend, Jacklyny, again. No answer at this time. [phone] Girlfriend states she was not with patient when he overdosed. She became tearful stating that he has not touched heroin in months. She states he promised her he would not use heroin and she was very surprised by this. She has not seen him since this morning when she left. Denies history of suicide attempts. Girlfriend states she has been with patient 1.5 years. She supports him going to [facility] and plans to talk to him about this. Girlfriend reports she can pick patient up when he is medically cleared and discharged. She denies using substances today. She was informed at this time he is not medically cleared, but clinician will pass her information along to the nurse with a POC. Patient was oriented to self, person, place, time and situation. Mood was lethargic with flat affect. He denies current suicidal and homicidal ideation, plan, and intent. Patient did not appear to be responding to internal stimuli as evidenced by fair eye contact and answering questions appropriately when addressed. Thought processes are organized. Conversational speech was within normal limits for rate, tone, and prosody. Intellectual abilities are estimated to be average. Insight, judgment, and impulse control were poor as evidenced by chronic drug use. He demonstrates future forward goal oriented thinking as he talks about considering going to [facility] upon discharge. Clinical Presentation: substance abuse IVC Criteria per [place] GS 122C Dangerous to others Within the relevant past the individual No has inflicted or attempted to inflict or threatened to inflict serious bodily harm on another AND No that there is a reasonable probability that this conduct will be repeated. OR No has acted in such a way as to create a substantial risk of serious bodily harm to another AND No that there is a reasonable probability that this conduct will be repeated. OR No has engaged in extreme destruction of property AND NO that there is a reasonable probability that this conduct will be repeated. Previous episodes of dangerousness to others, when applicable, may be considered when determining reasonable probability of future dangerous conduct. Clear, cogent, and convincing evidence that an individual has committed a homicide in the relevant past is prima facie evidence of dangerousness to others. Dangerous to self Within the relevant past the individual has done any of the following: acted in such a way as to show ALL of the following: No The individual would be unable without care, supervision, and the continued assistance of others not otherwise available, to exercise self-contro l, judgment, and discretion in the conduct of the individual's daily responsibilities and social relations or to satisfy the individual's need for nourishment, personal or medical care, alf, or self-protection and safety. AND No There is a reasonable probability of the individual suffering serious physical debilitation within the near future unless adequate treatment is given. A showing of behavior that is grossly irrational, of actions that the individual is unable to control, of behavior that is grossly inappropriate to the situation, or of other evidence of severely impaired insight and judgment shall create a prima facie inference that the individual is unable to care for himself or herself. OR No has attempted suicide or threatened suicide Misuse of heroine was accidental; no SI, plan, or intent AND No that there is a reasonable probability of suicide unless adequate treatment is given OR No has mutilated himself or herself or attempted to mutilate himself or herself AND No that there is a reasonable probability of serious self-mutilation unless adequate treatment is given. NOTE: Previous episodes of dangerousness to self, when applicable, may be considered when determining reasonable probability of physical debilitation, suicide, or self-mutilation. Impression\plan: Patient is cleared from psychiatric services. Patient does not meet criteria for IVC. Patients choice of illegal drug use is chronic and not acute. Patient does not use drugs with the intent to end his life. Patient misusing heroin and needing narcan does not qualify for IVC criteria. His intent was not suicide and his accidental overdoses are not frequent. He was alert and able to fully participate in the behavioral health assessment. Patient denies suicidal ideation, plan, and intent. He denies history of suicide attempts and mother confirms. While patients choice of drug use is unhealthy and illegal, it is a choice he continues to make, daily. Patient has been homeless (lives in an abandoned building) for 6-7 years and chronically using meth and marijuana for years (confirmed by his 09/2018 and 09/2019 toxicology screenings in which meth/amphetamines and THC were positive). He reports not typically doing heroin, however tried it today, but cannot recall how much he used. Patient reports a history of depression, however this seems to be secondary to his chronic drug use. Patients mother and girlfriend of 1.5 years confirm his chronic drug use, deny history of suicide attempts, and report he was medically treated for an accidental overdose 2.5 years ago. Patient had accidentally overdosed on meth in September 2018, was treated medically, and chose to not follow up with detox and rehab post hospital discharge. Patient has attempt ed to go to treatment facilities over the years to include in [place] and at [facility], but always checks out prior to his treatment being complete. At this time, patient is cleared from psych, however is still being treated medically. Patient is thinking about going to [facility]. He was given community resources for outpatient facilities, [facility], other detox and substance use resources, homeless shelters and food eagle, mobile crisis, and online AA/NA meetings he can attend. Patient is highly recommended to call [facility] prior to discharging from [facility] and scheduling an intake assessment with them. At this time, he is not cleared medically, therefor he cannot call to put a bed on hold. Patient is recommended to follow up immediately with [facility], abstain from drug use, and utilize mobile crisis or return to the ED if needed. Patients girlfriend agrees to be part of his discharge plan of care and states she can pick patient up when he is medically cleared. Mother states she cannot take patient to her home as his drug use is chronic and he refuses to discontinue. Patients girlfriend supports him following up immediately with [facility] and is going to talk to him about this as well. Nursing staff has been given the phone number for [facility] to assist patient in calling to schedule a time for assessment. At this time, it is still unclear if patient will choose to follow up with detox treatment. In addition, a referral for community paramedics has been made for additional community support. Patient is recommended to return to the ED if necessary. At this time patient continues to be treated medically and if new information arises or new psych concerns arise, please re-consult psych. Dr. Martinez was consulted to care management of this patient; attending physicians in agreement with recommendations and disposition.
--- NOTE | 2020-04-16 22:04 | PDOC CONSULTATION ---
Consultation Consult Date: 04/16/20 Provider Consulted: BENI SMALL History of Present Illness History of Present Illness: JAKE DELEON is a 29 year old male who says he typically prefers methamphetamine but today he got his hands on some heroin and did that. He says he does not know how much he did, but he does not typically do it, so he unintentionally overdosed. He was brought to the ER and was seen by behavioral health who has cleared him from psychiatric services as he does not meet IVC criteria. He says he was not trying to harm himself, he was just trying to get high. He is been given a couple of doses of Narcan and is currently sleeping it off in the ER. He arouses to verbal command and is able to answer questions. He is able to protect his airway and was able to drink a cup of water through a straw without any difficulty. He was tested for Covid and that was negative. Past Medical History Past Medical History: Patient denies Past Surgical History Past Surgical History: Reports: None Social History Information Source: Patient Smoking Status: Unknown if Ever Smoked Frequency of Alcohol Use: Occasional Drugs: Marijuana, Other - Methamphetamine Hx Prescription Drug Abuse: No Family History Family History: Reviewed & Not Pertinent Parental Family History Reviewed: No - Unknown Children Family History Reviewed: NA Sibling(s) Family History Reviewed.: Unknown Medication/Allergy Home Medications: Amox Tr/Potassium Clavulanate [Augmentin 875-125 mg Tablet] 1 tab PO BID #20 tablet 05/17/17 Oxycodone HCl/Acetaminophen [Percocet 5-325 mg Tablet] 1 - 2 tab PO ASDIR PRN #25 tablet 05/17/17 Ibuprofen [Motrin 800 mg Tablet] 800 mg PO Q8H PRN #30 tab 09/27/19 Sulfamethoxazole/Trimethoprim [Bactrim Ds Tablet] 1 tab PO BID #20 tablet 09/27/19 Ondansetron [Zofran Odt 4 mg Tablet] 1 - 2 tab PO Q4H PRN #15 tab.rapdis 12/17/19 Allergies/Adverse Reactions: poison maria l Allergy (Severe, Uncoded 09/27/19 13:02) Review of Systems ROS unobtainable: Other - He was able to wake up and answer questions, but is somewhat limited right now, but all systems were reviewed and were negative except as noted in the HPI Physical Exam Vital Signs: Temp Pulse Resp BP Pulse Ox 98.4 F 132/73 H 94 04/16/20 16:59 04/16/20 19:01 04/16/20 19:01 Intake & Output 04/15/20 04/16/20 04/17/20 06:59 06:59 06:59 Weight 73.5 kg General appearance: PRESENT: no acute distress, cooperative, disheveled, other - Multiple tattoos on his chest and upper extremities and a piercing in his lip Head exam: PRESENT: atraumatic, normocephalic Eye exam: PRESENT: EOMI, PERRLA - Sluggish. ABSENT: conjunctival injection, nystagmus, scleral icterus Ear exam: PRESENT: normal external ear exam Mouth exam: PRESENT: dry mucosa, neck supple Throat exam: ABSENT: post pharyngeal erythema Neck exam: PRESENT: full ROM. ABSENT: carotid bruit, JVD, lymphadenopathy, meningismus, tenderness, thyromegaly Respiratory exam: PRESENT: clear to auscultation raeann, symmetrical, unlabored. ABSENT: accessory muscle use, chest wall tenderness, crackles, prolonged expiratory phas, rhonchi, tachypnea, wheezes Cardiovascular exam: PRESENT: RRR, +S1, +S2 Pulses: PRESENT: normal carotid pulses Vascular exam: PRESENT: normal capillary refill GI/Abdominal exam: PRESENT: hypoactive bowel sounds, soft. ABSENT: distended, guarding, rebound Extremities exam: ABSENT: clubbing, pedal edema Musculoskeletal exam: PRESENT: normal inspection. ABSENT: deformity Neurological exam: PRESENT: awake, oriented to person, oriented to place, oriented to situation, CN II-XII grossly intact Psychiatric exam: PRESENT: flat affect Skin exam: PRESENT: dry, warm Results Laboratory Results: 04/16/20 17:00 04/16/20 17:00 04/16/20 04/16/20 17:00 17:00 WBC 9.1 RBC 5.12 Hgb 14.9 Hct 43.4 MCV 85 MCH 29.2 MCHC 34.4 RDW 12.9 Plt Count 330 Seg Neutrophils % 75.8 Sodium 140.1 Potassium 4.1 Chloride 103 Carbon Dioxide 31 H Anion Gap 6 BUN 15 Creatinine 0.87 Est GFR ( Amer) > 60 Glucose 80 Calcium 9.3 Total Bilirubin 0.5 AST 22 Alkaline Phosphatase 58 Total Protein 7.2 Albumin 4.0 Impressions: Chest X-Ray 04/16/20 17:05 IMPRESSION: HAZY PARENCHYMAL OPACITIES IN BOTH LUNGS, CONCERNING FOR PNEUMONIA. COULD BE DUE TO COVID-19. Assessment and Plan - Diagnosis (1) Accidental heroin overdose Qualifiers: Encounter type: initial encounter Qualified Code(s): T40.1X1A - Poisoning by heroin, accidental (unintentional), initial encounter Is this a current diagnosis for this admission?: Yes - Plan Summary Summary: This was an unintentional overdose. He has been cleared by psychiatric services. He tested negative for Covid. He arouses to verbal command and is able to answer questions at this time. He needs time to sleep but often let the heroin get out of his system. He does not need to be admitted to the hospital for this to happen. Once he is a little bit more awake he can be discharged from the ER. - Time Time Spent with patient: 35 or more minutes Anticipated Discharge Disposition: Home, Self Care Anticipated Discharge Timeframe: within 24 hours Disposition: Home
--- NOTE | 2020-04-16 23:39 | ER Document Report ---
Doctor's Note Notes: 04/16/20 23:34 I was asked to see the patient by the NANCY. Patient came in as an overdose. From reports, he normally does methamphetamine but today he tried heroin. He was found unresponsive with pinpoint pupils by EMS. He was given 4 mg of Narcan by EMS and Zofran. From reports, on arrival patient was requiring supplemental oxygen. He also required more Narcan. Patient was seen by the psychiatric team. They state that he does not meet IVC criteria because this was unintentional. Patient required more Narcan while in the ED and is still not back to his normal baseline, admission was recommended by the original provider. On exam, patient is easily arousable to voice. He is unable to provide any meaningful history. He is still fatigued. He is requiring 2 L nasal cannula. Respirations are 12. He is 97% on nasal cannula. He is resting but still not back to his normal baseline. Bilateral breath sounds are clear. 04/16/20 23:35 The hospitalist came to evaluate the patient. He told the NANCY that he did not want to admit the patient and just wanted him observed in the ED by us. I also personally discussed this with the hospitalist. He is requiring supplemental oxygen. He dropped to 88% when you take him off the oxygen. He is also still not at his normal baseline. Disposition and admission decision is still pending. 04/19/20 06:41
[2020-04-17 04:15] LABS: APPEARANCE,URINE CLEAR; BILIRUBIN,URINE NEGATIVE (NEGATIVE); COLOR,URINE YELLOW; GLUCOSE, URINE NEGATIVE (NEGATIVE); KETONES,URINE NEGATIVE (NEGATIVE); LEUKOCYTE ESTERASE,URINE TRACE (NEGATIVE); NITRITE,URINE NEGATIVE (NEGATIVE); PROTEIN,URINE 30 mg/dL (NEGATIVE); URINE SPECIFIC GRAVITY 1.026; UROBILINOGEN,URINE NEGATIVE mg/dL (<2.0)
[2020-04-17 04:36] LABS: URINE BARBITURATES SCREEN NEGATIVE; URINE BENZODIAZEPINES SCREEN NEGATIVE; URINE COCAINE SCREEN NEGATIVE; URINE METHADONE SCREEN NEGATIVE; URINE PHENCYCLIDINE SCREEN NEGATIVE
[2020-04-17 04:50] LABS: URINE MARIJUANA (THC) SCREEN UNCONFIRMED POSITIVE
[2020-04-17 05:22] VITALS: BP 109/68
--- NOTE | 2020-04-17 08:46 | EKG REPORT ---
SEVERITY:- BORDERLINE ECG - SINUS RHYTHM BORDERLINE R WAVE PROGRESSION, ANTERIOR LEADS : Confirmed by: Jabier Galan MD 17-Apr-2020 08:45:46
== END 2020-04-17 05:55 | disposition home or self-care (01) ==
LOC: ER 16:37
DX: T40.1X1A Poisoning by heroin, accidental (unintentional), initial encounter (principal); F11.10 Opioid abuse, uncomplicated; F19.10 Other psychoactive substance abuse, uncomplicated; Z20.822 Contact with and (suspected) exposure to COVID-19; F17.210 Nicotine dependence, cigarettes, uncomplicated; Z59.0 Homelessness
CPT/HCPCS: 93005; 96376; 99285; 96374; 36415; 80307 ×4; 85025; 0241U; 80053; 81001; 71045; 93010; J2310; C9803